=== PATIENT | female | born 1935 | race Caucasian/White ===

== ENCOUNTER 2018-07-26 15:53 | Emergency (ER) | payer OTHER ==
[2018-07-26 17:38] LABS: Absolute Lymphocytes (CBC) 2.1 K/uL (0.7-4.9); Absolute Monocytes 1.3 K/uL (0.1-1.3); Absolute Neutrophil 4.3 K/uL (1.8-8.0); Basophils % 0.7 % (0-1.3); Eosinophils % 2.1 % (0-4.4); Hematocrit 36.1 % (36.0-45.0); MPV 8.2 fL (7.6-11.3); Monocytes % 15.8 % (3.3-12.3); RBC Red Blood Cell Count 3.95 M/uL (3.86-4.86)
[2018-07-26 17:39] LABS: Protime INR 0.98
[2018-07-26 17:56] LABS: ALT/SGPT 35 U/L (12-78); AST/SGOT 28 U/L (15-37); Albumin 3.5 g/dL (3.4-5.0); Alkaline Phosphatase 99 U/L (45-117); BUN Blood Urea Nitrogen 12 mg/dL (7-18); Bicarbonate 31 mmol/L (21-32); Bilirubin Direct 0.1 mg/dL (0-0.2); Bilirubin Total 0.2 mg/dL (0.2-1.0); Glucose Level 106 mg/dL (74-106); Magnesium 2.2 mg/dL (1.8-2.4); NT PRO-BNP 398 pg/mL (<450); Potassium 4.4 mmol/L (3.5-5.1); Protein, Total 7.5 g/dL (6.4-8.2); Sodium Level 131 mmol/L (136-145); Troponin (Emerg Dept Use Only) < 0.02 ng/mL (0.0-0.045)
--- NOTE | 2018-07-26 18:07 | RAD REPORT ---
EXAM DESCRIPTION: CT - Head Brain Wo Cont - 07/26/2018 5:55 pm CLINICAL HISTORY: Alteration of awareness/confusion COMPARISON: December 2016 TECHNIQUE: Computed axial tomography of the head was obtained. IV contrast was not requested. All CT scans are performed using dose optimization technique as appropriate and may include automated exposure control or mA/KV adjustment according to patient size. FINDINGS: Postsurgical changes involve the right cerebrum with gliosis. An acute intracranial bleed is not seen. The ventricles are normal in caliber. No extra-axial fluid collection is noted. Moderate low-density areas within periventricular, deep and subcortical white matter likely represent ischemic changes secondary to small vessel disease. Fluid within the sinuses/ mastoids is not seen. IMPRESSION: No acute intracranial abnormality is seen. If patient's symptoms persist MRI of the bra in would be recommended.
[2018-07-26 18:25] LABS: Urine Blood TRACE (NEG); Urine Glucose NEGATIVE (NEG); Urine Protein NEGATIVE (NEG); Urine Specific Gravity 1.015 (1.005-1.030); Urine pH 7.5 (5.0-7.0)
--- NOTE | 2018-07-26 18:55 | ER ---
Nurse's Notes [facility] Name: Mira Pinto Age: 83 yrs Sex: Female : 1935 Arrival Date: 07/26/2018 Time: 15:57 Bed 27 Private MD: Deniz Lofton Diagnosis: Dementia in other diseases classified elsewhere Presentation: 07/26 15:58 Presenting complaint: Child states: "[facility] nurse called and said that she was aj1 a little more confused than usual, she thought it might be a UTI" Reports that the nurse at [facility] said that her urine had a foul odor to it. Denies dysuria, urinary frequency, fever'. Transition of care: patient was not received from another setting of care. Onset of symptoms was July 26, 2018. Risk Assessment: Do you want to hurt yourself or someone else? Patient reports no desire to harm self or others. Initial Sepsis Screen: Does the patient meet any 2 criteria? No. Patient's initial sepsis screen is negative. Does the patient have a suspected source of infection? Yes: Dysuria/Frequency/Urgency/UTI. Care prior to arrival: None. 15:58 Method Of Arrival: Ambulatory aj1 15:58 Acuity: JOSE 3 aj1 Triage Assessment: 16:03 General: Appears in no apparent distress. comfortable, Behavior is calm, cooperative, aj1 appropriate for age. Pain: Denies pain. Neuro: Level of Consciousness is awake, alert. Cardiovascular: Patient's skin is warm and dry. Respiratory: Airway is patent Respiratory effort is even, Respiratory pattern is regular, symmetrical. 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 - Social history:: Smoking status: Patient/guardian denies using tobacco. - Ebola Screening: : Patient denies travel to an Ebola-affected area in the 21 days before illness onset. Screenin:34 Abuse screen: Denies threats or abuse. Denies injuries from another. Nutritional rv screening: No deficits noted. 18:18 Fall Risk No fall in past 12 months (0 pts). Secondary diagnosis (15 points) impaired rv mobility, No IV (0 pts). Ambulatory Aid- Crutches/Cane/Walker (15 pts). Gait- Weak (10 pts.). Mental Status- Oriented to own ability (0 pts). Total Fields Fall Scale indicates Low Risk Score (25-44 pts). Fall prevention measures have been instituted. Side Rails Up X 2 Placed close to Nursing Station Frequent Obs/Assesments occuring Family Present and informed to notify staff if they need to leave bedside As available Patient and Family Educated on Fall Prevention Program and strategies. 19:21 Tuberculosis screening: No symptoms or risk factors identified. rv Assessment: 17:34 General: Appears in no apparent distress. comfortable, Behavior is calm, cooperative. rv Pain: Denies pain. Neuro: Level of Consciousness is awake, alert, obeys commands, Oriented to person, place, time, situation. Cardiovascular: Capillary refill < 3 seconds. Respiratory: Airway is patent. GI: No signs and/or symptoms were reported involving the gastrointestinal system. : No signs and/or symptoms were reported regarding the genitourinary system. EENT: No signs and/or symptoms were reported regarding the EENT system. Derm: Skin is intact. Musculoskeletal: No signs and/or symptoms reported regarding the musculoskeletal system. Vital Signs: 16:03 BP 142 / 75; Pulse 87; Resp 18; Temp 98.0; Pulse Ox 98% on R/A; Weight 60.78 kg (R); aj1 Height 4 ft. 11 in. (149.86 cm) (R); Pain 0/10; 16:49 BP 137 / 68; Pulse 77; Resp 16 S; Pulse Ox 100% on R/A; rv 17:00 BP 139 / 72; Pulse 77; Resp 16 S; Pulse Ox 99% on R/A; rv 17:20 BP 147 / 72; Pulse 90; Resp 17 S; Pulse Ox 100% on R/A; rv 17:40 BP 158 / 79; Pulse 90; Resp 18 S; Pulse Ox 99% on R/A; rv 16:03 Body Mass Index 27.06 (60.78 kg, 149.86 cm) aj1 ED Course: 15:57 Patient arrived in ED. sb2 15:57 Deniz Lofton DO is Private Physician. sb2 16:02 Triage completed. aj1 16:03 Arm band placed on Patient placed in waiting room, Patient notified of wait time. aj1 16:39 Ran Allen PA is PHCP. [facility] 16:39 Rakan Holt MD is Attending Physician. jmm 17:[address] via stretcher. nj 17:33 Basic Metabolic Panel Sent. rv 17:33 CBC with Diff Sent. rv 17:33 LFT's Sent. rv 17:33 Magnesium Sent. rv 17:33 NT PRO-BNP Sent. rv 17:33 PT-INR Sent. rv 17:33 Troponin (emerg Dept Use Only) Sent. rv 17:56 CT Head Brain wo Cont In Process Unspecified. EDMS 18:05 EKG done, by proc tech. reviewed by Ran GREER. 3 18:17 Goldsmith cath inserted, using sterile technique, 16 Fr., by la, urine specimen collected. rv returned clear yellow urine. Patient tolerated well. Goldsmith cath removed intact. 18:18 Patient has correct armband on for positive identification. Bed in low position. Call rv light in reach. Side rails up X2. Adult w/ patient. monitoring and evaluation advisor on. Pulse ox on. NIBP on. 19:00 XRAY Chest (1 view) In Process Unspecified. EDMS 19:21 No provider procedures requiring assistance completed. IV discontinued, bleeding rv controlled, No redness/swelling at site. Pressure dressing applied. Administered Medications: No medications were administered Outcome: 18:54 Discharge ordered by MD. jm 19:21 Discharged to home via wheelchair. rv 19:21 Condition: good 19:21 Discharge instructions given to patient, family, Instructed on discharge instructions, follow up and referral plans. Demonstrated understanding of instructions, follow-up care. 19:22 Patient left the ED. rv Signatures: Dispatcher [employer] EDMS Latia Parrish, RN RN aj1 Ran lAlen PA PA Chris Pavon Sheri sb2 Montes, Shakira 3 Jc Choi RN RN rv
--- NOTE | 2018-07-26 18:56 | EDPHYS ---
Physician Documentation [facility] Name: Mira Pinto Age: 83 yrs Sex: Female : 1935 Arrival Date: 07/26/2018 Time: 15:57 Bed 27 Private MD: Deniz Lofton ED Physician Rakan Holt HPI: 07/26 17:12 This 83 yrs old Female presents to ER via Ambulatory with complaints of POSS jmm UTI. 17:12 The patient presents with confusion. Onset: The symptoms/episode began/occurred today, jm at 15:00. Possible causes: unknown. Associated signs and symptoms:. This is an 83 year old female with a history of dementia, lupus, cva that presents to the ED nursing him complaints of confusion beginning today around 1500. Daughter states the patient is at her baseline. Daughter stated the halfway was concerned she may have a uti due to foul smelling urine. Patient denies weakness, chest pain, shortness of breath. . 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 - Social history:: Smoking status: Patient/guardian denies using tobacco. - Ebola Screening: : Patient denies travel to an Ebola-affected area in the 21 days before illness onset. ROS: 17:12 Constitutional: Negative for fever, chills, and weight loss, Eyes: Negative for injury, jmm pain, redness, and discharge, Cardiovascular: Negative for chest pain, palpitations, and edema, Respiratory: Negative for shortness of breath, cough, wheezing, and pleuritic chest pain, Neuro: Negative for headache, weakness, numbness, tingling, and seizure. 17:12 All other systems are negative. Exam: 17:12 Constitutional: This is a well developed, well nourished patient who is awake, alert, jmm and in no acute distress. Head/Face: atraumatic. Eyes: EOMI, no conjunctival erythema appreciated ENT: Moist Mucus Membranes Neck: Trachea midline, Supple Chest/axilla: Normal chest wall appearance and motion. Cardiovascular: Regular rate and rhythm. No edema appreciated Respiratory: Normal respirations, no respiratory distress appreciated Abdomen/GI: Non distended, soft Skin: General appearance color normal MS/ Extremity: Moves all extremities, no obvious deformities appreciated, no edema noted to the lower extremities 17:12 Neuro: Orientation: is normal, Mentation: is normal, Memory: is normal, Cerebellar function: normal finger to nose testing, Motor: moves all fours, no drift is appreciated. 17:12 Psych: Behavior/mood is pleasant, cooperative. Vital Signs: 16:03 BP 142 / 75; Pulse 87; Resp 18; Temp 98.0; Pulse Ox 98% on R/A; Weight 60.78 kg (R); aj1 Height 4 ft. 11 in. (149.86 cm) (R); Pain 0/10; 16:49 BP 137 / 68; Pulse 77; Resp 16 S; Pulse Ox 100% on R/A; rv 17:00 BP 139 / 72; Pulse 77; Resp 16 S; Pulse Ox 99% on R/A; rv 17:20 BP 147 / 72; Pulse 90; Resp 17 S; Pulse Ox 100% on R/A; rv 17:40 BP 158 / 79; Pulse 90; Resp 18 S; Pulse Ox 99% on R/A; rv 16:03 Body Mass Index 27.06 (60.78 kg, 149.86 cm) aj1 MDM: 17:12 Patient medically screened. [facility] 18:54 Data reviewed: vital signs, nurses notes. Counseling: I had a detailed discussion with [facility] the patient and/or guardian regarding: the historical points, exam findings, and any diagnostic results supporting the discharge/admit diagnosis, lab results, radiology results, the need for outpatient follow up, to return to the emergency department if symptoms worsen or persist or if there are any questions or concerns that arise at home. 19:14 ED course: Patient is alert and at baseline per family. Symptoms appear most likely [facility] related to dementia. I do not suspect an acute process. Family given return precautions. understood and agrees with the plan of care. . 07/26 17:12 Order name: Basic Metabolic Panel; Complete Time: 17:57 [facility] 07/26 17:12 Order name: CBC with Diff [facility] 07/26 17:12 Order name: LFT's; Complete Time: 17:57 [facility] 07/26 17:12 Order name: Magnesium; Complete Time: 17:57 [facility] 07/26 17:12 Order name: NT PRO-BNP; Complete Time: 17:57 [facility] 07/26 17:12 Order name: PT-INR; Complete Time: 18:15 [facility] 07/26 17:12 Order name: Troponin (emerg Dept Use Only); Complete Time: 17:57 [facility] 07/26 17:12 Order name: XRAY Chest (1 view) [facility] 07/26 17:12 Order name: EKG; Complete Time: 17:14 [facility] 07/26 17:12 Order name: Cardiac monitoring; Complete Time: 18:21 [facility] 07/26 17:12 Order name: EKG - Nurse/Tech; Complete Time: 18:21 [facility] 07/26 17:12 Order name: CT Head Brain wo Cont; Complete Time: 18:14 [facility] 07/26 17:51 Order name: Urine Dipstick--Ancillary (enter results); Complete Time: 18:25 07/26 18:18 Order name: Urine Microscopic Only; Complete Time: 19:14 [facility] 07/26 17:12 Order name: IV Saline Lock; Complete Time: 17:33 [facility] 07/26 17:12 Order name: Labs collected and sent; Complete Time: 17:33 [facility] 07/26 17:12 Order name: O2 Per Protocol; Complete Time: 17:33 [facility] 07/26 17:12 Order name: O2 Sat Monitoring; Complete Time: 17:33 [facility] 07/26 17:12 Order name: Urine Dipstick-Ancillary (obtain specimen); Complete Time: 18:21 [facility] Administered Medications: No medications were administered Disposition: 07/26/18 18:54 Discharged to Home. Impression: Dementia in other diseases classified elsewhere. - Condition is Stable. - Discharge Instructions: Dementia. - Medication Reconciliation Form, Thank You Letter, Antibiotic Education, Prescription Opioid Use form. - Follow up: Private Physician; When: 1 - 2 days; Reason: Recheck today's complaints, Continuance of care, Re-evaluation by your physician. Addendum: 08/06/2018 07:33 Co-signature as Attending Physician, Rakan Holt MD I agree with the assessment and k dr plan of care. Signatures: Dispatcher [employer] EDLatia Koroma RN RN aj1 Rakan Holt MD MD kdr Mickail, Joel, PA PA jmm Vicente, Ronaldo, RN RN rv Corrections: (The following items were deleted from the chart) 07/26 19:22 18:54 07/26/2018 18:54 Discharged to Home. Impression: Dementia in other diseases rv classified elsewhere. Condition is Stable. Forms are Medication Reconciliation Form, Thank You Letter, Antibiotic Education, Prescription Opioid Use. Follow up: Private Physician; When: 1 - 2 days; Reason: Recheck today's complaints, Continuance of care, Re-evaluation by your physician. christina
[2018-07-26 19:00] LABS: Urine Bacteria <20 /HPF (<20); Urine Culture Reflex Order NOT NEEDED
--- NOTE | 2018-07-26 19:34 | RAD REPORT ---
EXAM DESCRIPTION: Kaci Single View07/26/2018 6:59 pm CLINICAL HISTORY: Chest pain COMPARISON: none FINDINGS: The lungs appear clear of acute infiltrate. The heart is borderline enlarged. Small to mo derate hiatal hernia IMPRESSION: No acute abnormalities displayed
[2018-07-26 20:12] LABS: Anisocytosis SLIGHT; Blood Morphology Comment NOTED (NOT SEEN); Platelet Estimate ADEQ
--- NOTE | 2018-07-27 07:01 | EKG ---
Test Date: 2018-07-26 Test Time: 17:43:45 Foreign Car Mechanic: ADY MEASUREMENT RESULTS: Intervals: Rate: 78 OR: 188 QRSD: 70 QT: 396 QTc: 451 [place]: P: 61 OR: 188 QRS: 78 T: 59 INTERPRETIVE STATEMENTS: Sinus rhythm with occasional premature ventricular complexes Otherwise normal ECG Compared to ECG 10/14/1994 09:07:00 Ventricular premature complex(es) now present Electronically Signed On 07-27-18 06:52:12 RESIDENTIAL LEASING MANAGER by Jaison Kent
== END 2018-07-26 19:22 | disposition home or self-care (01) ==
LOC: ER 15:53
DX: F03.90 Unspecified dementia, unspecified severity, without behavioral disturbance, psychotic disturbance, mood disturbance, and anxiety (principal); Z88.5 Allergy status to narcotic agent; Z85.850 Personal history of malignant neoplasm of thyroid; Z86.73 Personal history of transient ischemic attack (TIA), and cerebral infarction without residual deficits; Z90.13 Acquired absence of bilateral breasts and nipples
CPT/HCPCS: 36415; 51702; 70450; 71045; 80048; 80076; 81003; 81015; 83735; 83880; 84484; 85025; 85610; 93005; 99285

== ENCOUNTER 2018-10-13 20:05 | Emergency (ER) | payer OTHER ==
[2018-10-13 22:13] LABS: Urine Blood NEGATIVE (NEG); Urine Glucose NEGATIVE (NEG); Urine Protein NEGATIVE (NEG); Urine pH 6.5 (5.0-7.0)
--- NOTE | 2018-10-13 22:24 | ER ---
Nurse's Notes [facility] Name: Mira Pinto Age: 83 yrs Sex: Female : 1935 Arrival Date: 10/13/2018 Time: 20:12 Bed 28 Private MD: Diagnosis: Concussion;Contusion of unspecified part of head;Contusion of lower back and pelvis;Contusion of left lower leg Presentation: 10/13 20:12 Presenting complaint: EMS states: "PATIENT FELL FROM STANDING. PATIENT HIT HER HEAD, rv BUT NO LOSS OF CONSCIOUSNESS. PATIENT DOES NOT TAKE ANY BLOOD THINNERS.". Transition of care: [facility]IVING. Onset of symptoms was October 13, 2018 at 20:00. Risk Assessment: Do you want to hurt yourself or someone else? Patient reports no desire to harm self or others. Initial Sepsis Screen: Does the patient meet any 2 criteria? No. Patient's initial sepsis screen is negative. Does the patient have a suspected source of infection? No. Patient's initial sepsis screen is negative. Care prior to arrival: None. 20:12 Method Of Arrival: EMS: [facility] rv 20:12 Acuity: JOSE 3 rv Triage Assessment: 20:26 General: Appears in no apparent distress. comfortable, Behavior is calm, cooperative. rv Pain: Complains of pain in HEAD, TAIL BONE. EENT: No signs and/or symptoms were reported regarding the EENT system. Neuro: Level of Consciousness is awake, alert, obeys commands, Oriented to person, place, situation. Cardiovascular: Capillary refill < 3 seconds. Respiratory: Airway is patent. GI: No signs and/or symptoms were reported involving the gastrointestinal system. : No signs and/or symptoms were reported regarding the genitourinary system. Derm: Skin is intact. Musculoskeletal: Reports pain in HEAD, TAIL BONE. 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 - Social history:: Smoking status: Patient/guardian denies using tobacco. - Ebola Screening: : Patient negative for fever greater than or equal to 101.5 degrees Fahrenheit, and additional compatible Ebola Virus Disease symptoms Patient denies exposure to infectious person Patient denies travel to an Ebola-affected area in the 21 days before illness onset. Screenin:45 Abuse screen: Denies threats or abuse. Denies injuries from another. Nutritional rv screening: No deficits noted. Tuberculosis screening: No symptoms or risk factors identified. Fall Risk Fall in past 12 months (25 points). Secondary diagnosis (15 points) impaired mobility, No IV (0 pts). Ambulatory Aid- Crutches/Cane/Walker (15 pts). Gait- Impaired (20 pts.). Mental Status- Oriented to own ability (0 pts). 20:46 Fall Risk Total Fields Fall Scale indicates High Risk Score (45 or more points). Fall rv prevention measures have been instituted. Side Rails Up X 2 Placed Close to Nursing Station Frequent Obs/Assessments Occuring Family Present and informed to notify staff if the need to leave the bedside As available patient and family educated on Fall Prevention Program and Strategies. Assessment: 20:46 Reassessment: SEE TRIAGE ASSESSMENT. rv Vital Signs: 20:15 BP 152 / 81 RA; Pulse 68; Resp 17 S; Temp 97.9(O); Pulse Ox 98% on R/A; rv 20:45 BP 135 / 71 RA; Pulse 62; Resp 16 S; Pulse Ox 96% on R/A; rv 22:37 BP 147 / 81 RA; Pulse 69; Resp 17 S; Pulse Ox 95% on R/A; rv ED Course: 20:12 Patient arrived in ED. rv 20:15 Triage completed. rv 20:20 Bk Yao MD is Attending Physician. tw4 20:47 Patient has correct armband on for positive identification. Placed in gown. Bed in low rv position. Call light in reach. Side rails up X2. Adult w/ patient. cardiac monitor on. Pulse ox on. NIBP on. 20:47 Arm band placed on Patient placed in an exam room, on a stretcher, on environmental monitoring technician, rv on pulse oximetry. EKG completed in triage. Results shown to MD. 21:[address] kw1 21:27 CT completed. Patient moved to radiology. kw1 21:27 CT Head Brain wo Cont In Process Unspecified. EDMS 21:33 CT completed. Patient tolerated procedure well. Patient moved to radiology. kw1 21:47 Tib Fib Left XRAY In Process Unspecified. EDMS 21:47 Hip Left 2 View In Process Unspecified. EDMS 21:47 Knee Left 3 View In Process Unspecified. EDMS 22:38 No provider procedures requiring assistance completed. Patient did not have IV access rv during this emergency room visit. Administered Medications: No medications were administered Outcome: 22:23 Discharge ordered by . tw4 22:38 Discharged to home via wheelchair. rv 22:38 Condition: good 22:38 Discharge instructions given to patient, family, Instructed on discharge instructions, follow up and referral plans. Demonstrated understanding of instructions, follow-up care. 22:38 Patient left the ED. rv Signatures: Dispatcher [employer] EDNY Lonnie Angelica kw1 Bk Yao MD MD tw4 Jc Choi RN RN rv Corrections: (The following items were deleted from the chart) 20:47 20:45 General: Appears in no apparent distress. comfortable, Behavior is calm, rv cooperative, rv :47 20:45 Pain: Denies pain. rv rv 20:47 20:45 Neuro: Level of Consciousness is awake, alert, obeys commands, Oriented to rv person, place, time, situation, rv 20:47 20:45 Cardiovascular: Capillary refill < 3 seconds rv rv 20:47 20:45 Respiratory: Airway is patent rv rv 20:47 20:45 GI: No signs and/or symptoms were reported involving the gastrointestinal system. rv rv 20: 20:45 : No signs and/or symptoms were reported regarding the genitourinary system. rv rv 20:47 20:45 Derm: Skin is intact, rv rv 20:47 20:45 EENT: No signs and/or symptoms were reported regarding the EENT system. rv rv 20:47 20:45 Musculoskeletal: No signs and/or symptoms reported regarding the musculoskeletal rv system. rv
--- NOTE | 2018-10-13 22:24 | EDPHYS ---
Physician Documentation [facility] Name: Mira Pinto Age: 83 yrs Sex: Female : 1935 Arrival Date: 10/13/2018 Time: 20:12 Bed 28 Private MD: ED Physician Bk Yao HPI: 10/14 06:59 This 83 yrs old Female presents to ER via EMS with complaints of fall. tw4 06:59 Details of fall: The patient fell from an upright position. Onset: The symptoms/episode tw4 began/occurred today. Associated injuries: The patient sustained injury to the head. Severity of symptoms: At their worst the symptoms were moderate, in the emergency department the symptoms. The patient has not experienced similar symptoms in the past. Historical: - Allergies: 10/13 20:25 Codeine; rv - Home Meds: 20:25 citalopram 20 mg tab 1 tab once daily [Active]; levetiracetam 1,000 mg oral tab 1 tab rv every 12 hours [Active]; Lyrica Oral 1 cap 2 times per day [Active]; melatonin 3 mg Oral tab [Active]; FACILITY ATTENDANT Thyroid oral 120 MG TAB oral 1 cap daily [Active]; omeprazole 20 mg Oral cpDR 1 cap once daily [Active]; Senexon-S 8.6-50 mg oral tab 1 tabs as needed [Active]; simvastatin 40 mg Oral tab 1 tab once daily [Active]; Vitamin B-12 1,000 mcg Oral TbER [Active]; Vitamin D3 5,000 unit oral tab daily [Active]; - PMHx: 20:25 "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 - Social history:: Smoking status: Patient/guardian denies using tobacco. - Ebola Screening: : Patient negative for fever greater than or equal to 101.5 degrees Fahrenheit, and additional compatible Ebola Virus Disease symptoms Patient denies exposure to infectious person Patient denies travel to an Ebola-affected area in the 21 days before illness onset. ROS: 10/14 06:59 Constitutional: Negative for fever, chills, and weight loss, Eyes: Negative for injury, tw4 pain, redness, and discharge, Cardiovascular: Negative for chest pain, palpitations, and edema, Respiratory: Negative for shortness of breath, cough, wheezing, and pleuritic chest pain, Abdomen/GI: Negative for abdominal pain, nausea, vomiting, diarrhea, and constipation, Back: Negative for injury and pain. MS/extremity: Positive for injury or acute deformity, Negative for abrasion, decreased range of motion, deformity, ecchymosis, erythema. Exam: 10/13 21:15 ECG was reviewed by the Attending Physician. tw4 10/14 06:59 Constitutional: This is a well developed, well nourished patient who is awake, alert, tw4 and in no acute distress. Head/Face: Normocephalic, atraumatic. Chest/axilla: Normal chest wall appearance and motion. Nontender with no deformity. No lesions are appreciated. Cardiovascular: Regular rate and rhythm with a normal S1 and S2. No gallops, murmurs, or rubs. Normal PMI, no JVD. No pulse deficits. Respiratory: Lungs have equal breath sounds bilaterally, clear to auscultation and percussion. No rales, rhonchi or wheezes noted. No increased work of breathing, no retractions or nasal flaring. Abdomen/GI: Soft, non-tender, with normal bowel sounds. No distension or tympany. No guarding or rebound. No evidence of tenderness throughout. Neuro: Awake and alert, GCS 15, oriented to person, place, time, and situation. Cranial nerves II-XII grossly intact. Motor strength 5/5 in all extremities. Sensory grossly intact. Cerebellar exam normal. Normal gait. Skin: Warm, dry with normal turgor. Normal color with no rashes, no lesions, and no evidence of cellulitis. Musculoskeletal/extremity: Extremities: noted in the left upper thigh, left quadriceps, left knee and left schuster: Vital Signs: 10/13 20:15 BP 152 / 81 RA; Pulse 68; Resp 17 S; Temp 97.9(O); Pulse Ox 98% on R/A; rv 20:45 BP 135 / 71 RA; Pulse 62; Resp 16 S; Pulse Ox 96% on R/A; rv 22:37 BP 147 / 81 RA; Pulse 69; Resp 17 S; Pulse Ox 95% on R/A; rv MDM: 20:20 Patient medically screened. tw4 10/14 06:59 Differential diagnosis: contusion, fracture. Data reviewed: vital signs, nurses notes. tw4 Data interpreted: Pulse oximetry: Interpretation: normal. Counseling: I had a detailed discussion with the patient and/or guardian regarding: the historical points, exam findings, and any diagnostic results supporting the discharge/admit diagnosis, radiology results. Special discussion: I discussed with the patient/guardian in detail that at this point there is no indication for admission to the hospital. It is understood, however, that if the symptoms persist or worsen the patient needs to return immediately for re-evaluation. 07:01 ED course: All imaging studies negative pt awake alert oriented times three. tw4 10/13 20:49 Order name: Urine Dipstick--Ancillary (enter results) ar5 10/13 22:13 Order name: Urine Dipstick-Ancillary EDMS 10/13 21:07 Order name: CT Head Brain wo Cont rv 10/13 21:07 Order name: Tib Fib Left XRAY rv 10/13 21:38 Order name: Hip Left 2 View EDMS 10/13 21:38 Order name: Knee Left 3 View EDMS EC/09 21:15 Rate is 64 beats/min. Rhythm is regular. QRS [place] is Normal. TN interval is normal. QRS tw4 interval is normal. No Q waves. T waves are Normal. No ST changes noted. Clinical impression: Normal ECG. Interpreted by me. Reviewed by me. Administered Medications: No medications were administered Disposition: 10/13/18 22:23 Discharged to Home. Impression: Concussion, Contusion of unspecified part of head, Contusion of lower back and pelvis, Contusion of left lower leg. - Condition is Stable. - Discharge Instructions: Contusion, Contusion, [id number], Head Injury, Adult, [id number]. - Medication Reconciliation Form, Thank You Letter, Antibiotic Education, Prescription Opioid Use form. - Follow up: Private Physician; When: Upon discharge from the Emergency Department; Reason: If symptoms return, Recheck today's complaints, Continuance of care. - Problem is new. - Symptoms have improved. Signatures: Dispatcher [facility] MD MD tw4 Jc Choi RN RN rv Corrections: (The following items were deleted from the chart) 21:38 21:08 Knee Left 2 View+RAD.RAD.BRZ ordered. EDMS EDMS 21:38 21:08 Hip Left 1 View+RAD.RAD.BRZ ordered. EDDE EDMS 22:38 22:23 10/13/2018 22:23 Discharged to Home. Impression: Concussion; Contusion of rv unspecified part of head; Contusion of lower back and pelvis; Contusion of left lower leg. Condition is Stable. Forms are Medication Reconciliation Form, Thank You Letter, Antibiotic Education, Prescription Opioid Use. Follow up: Private Physician; When: Upon discharge from the Emergency Department; Reason: If symptoms return, Recheck today's complaints, Continuance of care. Problem is new. Symptoms have improved. tw4
--- NOTE | 2018-10-14 11:42 | RAD REPORT ---
EXAM DESCRIPTION: RAD - Hip Left 2 View - 10/13/2018 9:47 pm CLINICAL HISTORY: PAIN Trauma, pain, history of fall COMPARISON: None FINDINGS: Left hip, left knee and left tibia/ fibula- multiple projections are submitted Osteoarthritic changes affect the left hip. No acute fracture or dislocation evident. 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 No acute fracture, dislocation or knee joint effu flavia seen. No fracture of the tibia/fibula identified. Small posterior calcaneal spur evident.
--- NOTE | 2018-10-14 21:46 | EKG ---
Test Date: 2018-10-13 Test Time: 20:35:11 Visual Effects Artist: MEASUREMENT RESULTS: Intervals: Rate: 64 CT: 206 QRSD: 74 QT: 416 QTc: 429 [place]: P: 49 CT: 206 QRS: 54 T: 54 INTERPRETIVE STATEMENTS: Normal sinus rhythm Normal ECG Compared to ECG 07/26/2018 17:43:45 Ventricular premature complex(es) no longer present Electronically Signed On 10-14-18 21:45:28 CDT by Bruno Bullock
--- NOTE | 2018-10-15 10:22 | RAD REPORT ---
EXAM DESCRIPTION: RAD - Tib Fib Left - 10/13/2018 9:49 pm CLINICAL HISTORY: PAIN Trauma, pain, history of fall COMPARISON: None FINDINGS: Left hip, left knee and left tibia/ fibula- multiple projections are submitted Osteoarthritic changes affect the left hip. No acute fracture or dislocation evident. 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 No acute fracture, dislocation or knee joint effu flavia seen. No fracture of the tibia/fibula identified. Small posterior calcaneal spur evident.
--- NOTE | 2018-10-15 10:22 | RAD REPORT ---
EXAM DESCRIPTION: RAD - Knee Left 3 View - 10/13/2018 9:49 pm CLINICAL HISTORY: PAIN Trauma, pain, history of fall COMPARISON: None FINDINGS: Left hip, left knee and left tibia/ fibula- multiple projections are submitted Osteoarthritic changes affect the left hip. No acute fracture or dislocation evident. 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 No acute fracture, dislocation or knee joint effu flavia seen. No fracture of the tibia/fibula identified. Small posterior calcaneal spur evident.
--- NOTE | 2018-10-15 11:52 | RAD REPORT ---
EXAM DESCRIPTION: Head Brain Wo Cont CLINICAL HISTORY: 83 years Female, TRAUMA TECHNIQUE: 5 mm axial images were obtained along with 3 mm reformatted coronal and sagittal images. This exam was performed according to our departmental dose-optimization program, which includes autom ated exposure control, adjustment of the mA and/or kV according to patient size and/or use of iterati ve reconstruction technique. COMPARISON: 07/26/2018. FINDINGS: No acute abnormal extracerebral fluid collections are demonstrated. The cortical sulci, ventricles, and cisterns are within normal limits. There are chronic encephalomalacic changes identified in the right frontal lobe and in the left parie steve lobe posteriorly from previous infarcts, stable. There are mild chronic bilateral periventricular microangiopathic white matter changes. There are no areas of altered attenuation identified to suggest acute hemorrhage, infarction, or mass lesion. The visualized portions of the paranasal sinuses and mastoid air cells are clear. IMPRESSION: 1. No acute intracranial abnormality. Electronically signed by: Vipul Lazcano MD 10/13/2018 9:48 PM BLASTING ENTRYMAN Due to temporary technical issues with the PACS/Fluency reporting system, reports are being signed by the in house radiologist as a courtesy to ensure prompt reporting. The interpreting radiologist is f ully responsible for the content of the report.
== END 2018-10-13 22:38 | disposition home or self-care (01) ==
LOC: ER 20:05
DX: S06.0X9A Concussion with loss of consciousness of unspecified duration, initial encounter (principal); S00.93XA Contusion of unspecified part of head, initial encounter; S30.0XXA Contusion of lower back and pelvis, initial encounter; S80.12XA Contusion of left lower leg, initial encounter; W19.XXXA Unspecified fall, initial encounter; Y93.9 Activity, unspecified; Y92.9 Unspecified place or not applicable; Z88.5 Allergy status to narcotic agent; Z85.850 Personal history of malignant neoplasm of thyroid; Z86.73 Personal history of transient ischemic attack (TIA), and cerebral infarction without residual deficits
CPT/HCPCS: 70450; 81003; 93005; 99284

== ENCOUNTER 2018-12-12 10:35 | Emergency (ER) | payer OTHER ==
--- NOTE | 2018-12-12 11:52 | RAD REPORT ---
EXAM DESCRIPTION: RAD - Lumbar Spine 3 Views - 12/12/2018 11:40 am CLINICAL HISTORY: Fall, back pain COMPARISON: Lumbar spine April 2007 FINDINGS: A three-view lumbar spine examination was performed. Bones are osteopenic. L3-L5 bodies are normal in height. T9-T11 also normal in height. Patient has a left convex mild rotoscoliosis that is minimally progressive from 2006. Approximately 20% compression superior endplate L2 is present stable from 2006. Patient has 10-20% co mpression of the superior endplate of T12. L1 shows 5-10% compression along the superior endplate. No lytic, sclerotic or expansile destructive process. Lower lumbar facet joint degenerative changes a re present. No disc space narrowing. No pars defects identified. IMPRESSION: T12 10-20% compression fracture along the superior endplate. L1 shows 5-10% compression along the superior endplate. Both of these fracture changes are new from 2006 but are not otherwise d ated. Given the fall history, acute fracture is certainly possible. Partial compression fracture of L2 is stable from 2006. No pathologic bone process seen. No encroachment into the central canal identified. Follow-up MR imaging could be performed to evaluat e for any active marrow signal in T12-L1 to evaluate acute or chronic nature.
--- NOTE | 2018-12-12 12:54 | ER ---
Nurse's Notes [facility] Name: Mira Pinto Age: 83 yrs Sex: Female : 1935 Arrival Date: 12/12/2018 Time: 10:36 Bed 6 Private MD: Deniz Lofton Diagnosis: Anterior stable compression fractures of T12 - L1, old anterior compression fracture of L2 Presentation: 12/12 10:50 Presenting complaint: Child states: From [place], fell Monday night, found on ph ground by staff, unknown LOC, c/o low back pain, pt does not remember falling, hx of dementia. Transition of care: patient was not received from another setting of care. Onset of symptoms was December 12, 2018. Risk Assessment: Do you want to hurt yourself or someone else? Patient reports no desire to harm self or others. Initial Sepsis Screen: Does the patient meet any 2 criteria? No. Patient's initial sepsis screen is negative. Does the patient have a suspected source of infection? No. Patient's initial sepsis screen is negative. Care prior to arrival: None. 10:50 Method Of Arrival: Wheelchair ph 10:50 Acuity: JOSE 3 ph 11:03 Mechanism of Injury: Fall from standing position. Trauma event details: Injury occurred sv in the [facility], Injury occurred: at home. Injury occurred: December 10, 2018. Trauma Activation: Not Applicable Physician: ED Physician; Name: ; Notified At: ; Arrived At: Physician: General Surgeon; Name: ; Notified At: ; Arrived At: Physician: Radiology; Name: ; Notified At: ; Arrived At: Physician: Respiratory; Name: ; Notified At: ; Arrived At: Physician: Lab; Name: ; Notified At: ; Arrived At: Historical: - Allergies: 10:53 Codeine; ph - Home Meds: 10:53 citalopram 20 mg tab 1 tab once daily [Active]; levetiracetam 1,000 mg Oral tab 1 tab ph every 12 hours [Active]; Lyrica Oral 1 cap 2 times per day [Active]; melatonin 3 mg Oral tab [Active]; DUCT LAYER Thyroid 120 MG TAB Oral 1 cap daily [Active]; omeprazole 20 mg Oral cpDR 1 cap once daily [Active]; Senexon-S 8.6-50 mg Oral tab 1 tabs as needed [Active]; simvastatin 40 mg Oral tab 1 tab once daily [Active]; Vitamin B-12 1,000 mcg Oral TbER [Active]; Vitamin D3 5,000 unit Oral tab daily [Active]; - PMHx: 10:53 "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 - Social history:: Smoking status: Patient/guardian denies using tobacco. - Immunization history: Last tetanus immunization: - up to date. - Ebola Screening: : No symptoms or risks identified at this time. Screenin:00 Abuse screen: Denies threats or abuse. Denies injuries from another. Tuberculosis sv screening: No symptoms or risk factors identified. 11:02 Nutritional screening: No deficits noted. Fall Risk Fall in past 12 months (25 points). sv Secondary diagnosis (15 points) dementia, No IV (0 pts). Ambulatory Aid- None/Bed Rest/Nurse Assist (0 pts). Gait- Weak (10 pts.). Mental Status- Oriented to own ability (0 pts). [place] Fall Scale indicates High Risk Score (45 or more points). Fall prevention measures have been instituted. Side Rails Up X 2 Placed Close to Nursing Station Frequent Obs/Assessments Occuring Family Present and informed to notify staff if the need to leave the bedside As available patient and family educated on Fall Prevention Program and Strategies. Primary Survey: 10:59 NO uncontrolled hemorrhage observed. A: The patient is alert. Airway: patent, No sv supplemental oxygen in use on arrival. Oral cavity: clear, Trachea midline. Breathing/Chest: Respiratory pattern: regular, Respiratory effort: spontaneous, unlabored, Chest inspection: symmetrical rise and fall of the chest. Circulation: Heart tones present. Skin color: pink, Skin temperature: warm, dry. Disability Alert. Exposure/Environment: All clothing and personal items were removed. Forensic evidence collection is not deemed to be indicated at this time. Items placed in patient belonging bag. There is no evidence of uncontrolled external bleeding. No obvious injuries are noted at this time. A warming method has been applied: A warm blanket has been provided to the patient. 11:45 Reassessment Airway Airway Patent Oxygen No O2 Oral cavity Clear Trachea Midline sv Breathing/Chest Respiratory pattern Regular Respiratory effort Spontaneous Unlabored Chest inspection Symmetrical Circulation Heart tones Present Pulses Palpable Color [place] Temperature Warm Dry Disability Alert. Secondary Survey: 10:59 HEENT: No deficits noted. Gastrointestinal: Palpation Patient reports sensitive in the sv lower abdomen. : No signs and/or symptoms were reported regarding the genitourinary system. Musculoskeletal: No signs and/or symptoms reported regarding the musculoskeletal system. Assessment: 12:30 Reassessment: Patient appears in no apparent distress at this time. No changes from sv previously documented assessment. Patient and/or family updated on plan of care and expected duration. Pain level reassessed. Patient is alert, oriented x 3, equal unlabored respirations, skin warm/dry/pink. 13:20 Reassessment: Patient appears in no apparent distress at this time. No changes from sv previously documented assessment. Patient and/or family updated on plan of care and expected duration. Pain level reassessed. Patient is alert, oriented x 3, equal unlabored respirations, skin warm/dry/pink. Vital Signs: 10:52 BP 149 / 86; Pulse 79; Resp 20; Temp 98.5; Pulse Ox 96% on R/A; Weight 63.5 kg; Pain ph 5/10; 11:45 BP 130 / 80; Pulse 77; Resp 16; Temp 98.4; Pulse Ox 95% ; sv 12:41 BP 126 / 66; Pulse 72; Resp 16; Temp 98.5; Pulse Ox 95% ; sv [place] Coma Score: 11:01 Eye Response: spontaneous(4). Verbal Response: oriented(5). Motor Response: obeys sv commands(6). Total: 15. 11:45 Eye Response: spontaneous(4). Verbal Response: oriented(5). Motor Response: obeys sv commands(6). Total: 15. 13:20 Eye Response: spontaneous(4). Verbal Response: oriented(5). Motor Response: obeys sv commands(6). Total: 15. Trauma Score (Adult): 11:01 Eye Response: spontaneous(1); Verbal Response: oriented(1); Motor Response: obeys sv commands(2); Systolic BP: > 89 mm Hg(4); Respiratory Rate: 10 to 29 per min(4); Ker[place] Score: 15; Trauma Score: 12 11:45 Eye Response: spontaneous(1); Verbal Response: oriented(1); Motor Response: obeys sv commands(2); Systolic BP: > 89 mm Hg(4); Respiratory Rate: 10 to 29 per min(4); Ker[place] Score: 15; Trauma Score: 12 13:20 Eye Response: spontaneous(1); Verbal Response: oriented(1); Motor Response: obeys sv commands(2); Systolic BP: > 89 mm Hg(4); Respiratory Rate: 10 to 29 per min(4); Kerline Score: 15; Trauma Score: 12 ED Course: 10:36 Patient arrived in ED. as 10:38 Deniz Lofton DO is Private Physician. as 10:38 Rakan Holt MD is Attending Physician. kdr 10:52 Triage completed. ph 10:52 Arm band placed on Patient placed in an exam room, on a stretcher, on pulse oximetry. ph 10:58 Joselin Small RN is Primary Nurse. sv 11:00 Patient has correct armband on for positive identification. Bed in low position. Call sv light in reach. Side rails up X2. Adult w/ patient. Pulse ox on. NIBP on. Door closed. Head of bed elevated. 11:02 Patient maintains SpO2 saturation greater than 95% on room air. sv 11:03 Thermoregulation: warm blanket given to patient. sv 11:38 X-ray completed. Patient tolerated procedure well. sw 11:40 Lumbar Spine (3 Views) XRAY In Process Unspecified. EDMS 13:20 No provider procedures requiring assistance completed. Patient did not have IV access sv during this emergency room visit. Administered Medications: 13:14 CANCELLED (order changed): traMADol 25 mg PO once sv 13:20 Drug: traMADol 50 mg Route: PO; ch 13:20 Follow up: Response: Medication administered at discharge. sv Intake: 11:01 PO: 0ml; Total: 0ml. sv 11:45 PO: 0ml; Total: 0ml. sv Output: 11:01 Urine: 0ml; Total: 0ml. sv 11:45 Urine: 0ml; Total: 0ml. sv Outcome: 12:53 Discharge ordered by . kdr 13:23 Discharged to home via wheelchair, with family. ch 13:23 Condition: unchanged 13:23 Discharge instructions given to patient, family, Instructed on discharge instructions, follow up and referral plans. no drinking with medication, no driving heavy equipment, medication usage, Demonstrated understanding of instructions, follow-up care, medications, Prescriptions given X 1. 13:24 Patient left the ED. 13:28 Patient's length of stay in the Emergency Department was greater than 2 hours. due to sv needing dischargePatient's length of stay extended due to Signatures: Dispatcher [employer] EDMS Justina Taylor RN RN Joselin Small RN RN Rakan Holt MD MD kdr Martinez, Amelia as Hall, Patricia, RN RN Colton, Edel
--- NOTE | 2018-12-12 12:54 | EDPHYS ---
Physician Documentation [facility] Name: Mira Pinto Age: 83 yrs Sex: Female : 1935 Arrival Date: 12/12/2018 Time: 10:36 Bed 6 Private MD: Deniz Lofton ED Physician Rakan Holt HPI: 12/12 10:59 This 83 yrs old Female presents to ER via Wheelchair with complaints of Fall kdr Injury, Back Pain. 10:59 Details of fall: The patient fell from an upright position, while standing. Onset: The kdr symptoms/episode began/occurred suddenly, Monday. Associated injuries: The patient sustained injury to the low back, decreased range of motion, pain, pain with movement. Severity of symptoms: At their worst the symptoms were moderate, in the emergency department the symptoms are unchanged. The patient has not experienced similar symptoms in the past. The patient has not recently seen a physician. Daughter indicates that she falls often and that since Monday, she has been c/o pain to her low back whenever she is moved. 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 - Social history:: Smoking status: Patient/guardian denies using tobacco. - Immunization history: Last tetanus immunization: - up to date. - Ebola Screening: : No symptoms or risks identified at this time. ROS: 10:59 Constitutional: Negative for fever, chills, and weight loss, Eyes: Negative for injury, kdr pain, redness, and discharge, ENT: Negative for injury, pain, and discharge, Neck: Negative for injury, pain, and swelling, Cardiovascular: Negative for chest pain, palpitations, and edema, Respiratory: Negative for shortness of breath, cough, wheezing, and pleuritic chest pain, Abdomen/GI: Negative for abdominal pain, nausea, vomiting, diarrhea, and constipation, : Negative for injury, bleeding, discharge, and swelling, MS/Extremity: Negative for injury and deformity, Skin: Negative for injury, rash, and discoloration, Neuro: Negative for headache, weakness, numbness, tingling, and seizure activity. Psych: Negative for depression, anxiety, suicide ideation, homicidal ideation, and hallucinations, Allergy/Immunology: Negative for hives, rash, and allergies, Endocrine: Negative for neck swelling, polydipsia, polyuria, polyphagia, and marked weight changes, Hematologic/Lymphatic: Negative for swollen nodes, abnormal bleeding, and unusual bruising. 10:59 Back: Positive for decreased range of motion, pain at rest, pain with movement, of the lumbar area. Exam: 10:59 Constitutional: This is a well developed, well nourished patient who is awake, alert, kdr and in no acute distress. Head/Face: Normocephalic, atraumatic. Eyes: Pupils equal round and reactive to light, extra-ocular motions intact. Lids and lashes normal. Conjunctiva and sclera are non-icteric and not injected. Cornea within normal limits. Periorbital areas with no swelling, redness, or edema. Neck: Trachea midline, no thyromegaly or masses palpated, and no cervical lymphadenopathy. Supple, full range of motion without nuchal rigidity, or vertebral point tenderness. No Meningismus. Chest/axilla: Normal chest wall appearance and motion. Nontender with no deformity. No lesions are appreciated. Cardiovascular: Regular rate and rhythm with a normal S1 and S2. No gallops, murmurs, or rubs. Normal PMI, no JVD. No pulse deficits. Respiratory: Lungs have equal breath sounds bilaterally, clear to auscultation and percussion. No rales, rhonchi or wheezes noted. No increased work of breathing, no retractions or nasal flaring. Abdomen/GI: Soft, non-tender, with normal bowel sounds. No distension or tympany. No guarding or rebound. No evidence of tenderness throughout. Skin: Warm, dry with normal turgor. Normal color with no rashes, no lesions, and no evidence of cellulitis. MS/ Extremity: Pulses equal, no cyanosis. Neurovascular intact. Full, normal range of motion. Neuro: Awake and alert, GCS 15, oriented to person, place, time, and situation. Cranial nerves II-XII grossly intact. Motor strength 5/5 in all extremities. Sensory grossly intact. Cerebellar exam normal. Normal gait. Psych: Awake, alert, with orientation to person, place and time. Behavior, mood, and affect are within normal limits. 10:59 Back: pain, that is mild, of the lumbar area, ROM is painful, normal spinal alignment noted, CVA tenderness, is absent, vertebral tenderness, is appreciated at L1, L2 and L3. Vital Signs: 10:52 BP 149 / 86; Pulse 79; Resp 20; Temp 98.5; Pulse Ox 96% on R/A; Weight 63.5 kg; Pain ph 5/10; 11:45 BP 130 / 80; Pulse 77; Resp 16; Temp 98.4; Pulse Ox 95% ; sv 12:41 BP 126 / 66; Pulse 72; Resp 16; Temp 98.5; Pulse Ox 95% ; sv Kerline Coma Score: 11:01 Eye Response: spontaneous(4). Verbal Response: oriented(5). Motor Response: obeys sv commands(6). Total: 15. 11:45 Eye Response: spontaneous(4). Verbal Response: oriented(5). Motor Response: obeys sv commands(6). Total: 15. 13:20 Eye Response: spontaneous(4). Verbal Response: oriented(5). Motor Response: obeys sv commands(6). Total: 15. Trauma Score (Adult): 11:01 Eye Response: spontaneous(1); Verbal Response: oriented(1); Motor Response: obeys sv commands(2); Systolic BP: > 89 mm Hg(4); Respiratory Rate: 10 to 29 per min(4); Kerline Score: 15; Trauma Score: 12 11:45 Eye Response: spontaneous(1); Verbal Response: oriented(1); Motor Response: obeys sv commands(2); Systolic BP: > 89 mm Hg(4); Respiratory Rate: 10 to 29 per min(4); Kerline Score: 15; Trauma Score: 12 13:20 Eye Response: spontaneous(1); Verbal Response: oriented(1); Motor Response: obeys sv commands(2); Systolic BP: > 89 mm Hg(4); Respiratory Rate: 10 to 29 per min(4); Kerline Score: 15; Trauma Score: 12 MDM: 10:59 Data reviewed: vital signs, nurses notes, radiologic studies. Counseling: I had a kdr detailed discussion with the patient and/or guardian regarding: the historical points, exam findings, and any diagnostic results supporting the discharge/admit diagnosis, radiology results. 12:53 Patient medically screened. kdr 12/12 10:59 Order name: Lumbar Spine (3 Views) XRAY; Complete Time: 12:13 kdr Administered Medications: 13:14 CANCELLED (order changed): traMADol 25 mg PO once sv 13:20 Drug: traMADol 50 mg Route: PO; 13:20 Follow up: Response: Medication administered at discharge. sv Disposition: 12/12/18 12:53 Discharged to Home. Impression: Anterior stable compression fractures of T12 - L1, old anterior compression fracture of L2. - Condition is Stable. - Prescriptions for Tramadol 50 mg Oral Tablet - take 1 tablet by ORAL route every 8 hours as needed; 12 tablet. - Medication Reconciliation Form, Thank You Letter, Prescription Opioid Use form. - Follow up: Private Physician; When: 2 - 3 days; Reason: If symptoms return, Further diagnostic work-up, Recheck today's complaints, Continuance of care, Re-evaluation by your physician. - Problem is new. - Symptoms have improved. Signatures: Dispatcher [employer] EDMS Justina Taylor RN RN Joselin Small RN RN Rakan Holt MD MD [email or web address] Merary Newby RN RN ph Corrections: (The following items were deleted from the chart) 13:05 12:53 12/12/2018 12:53 Discharged to Home. Impression: Anterior Stable Compression kdr Fracture of T11, T12. Condition is Stable. Forms are Medication Reconciliation Form, Thank You Letter, Antibiotic Education, Prescription Opioid Use. Follow up: Private Physician; When: 2 - 3 days; Reason: If symptoms return, Further diagnostic work-up, Recheck today's complaints, Continuance of care, Re-evaluation by your physician. Problem is new. Symptoms have improved. kdr 13:14 12:44 traMADol 25 mg PO once ordered. kdr sv 13:24 13:05 12/12/2018 12:53 Discharged to Home. Impression: Anterior stable compression ch fractures of T12 - L1, old anterior compression fracture of L2. Condition is Stable. Forms are Medication Reconciliation Form, Thank You Letter, Antibiotic Education, Prescription Opioid Use. Follow up: Private Physician; When: 2 - 3 days; Reason: If symptoms return, Further diagnostic work-up, Recheck today's complaints, Continuance of care, Re-evaluation by your physician. Problem is new. Symptoms have improved. kdr
[2018-12-12] MEDS ORDERED: TRAMADOL HCL 50 MG TAB ONE (13:23)
== END 2018-12-12 13:24 | disposition home or self-care (01) ==
LOC: ER 10:35
DX: S32.019A Unspecified fracture of first lumbar vertebra, initial encounter for closed fracture (principal); S32.029A Unspecified fracture of second lumbar vertebra, initial encounter for closed fracture; S22.089A Unspecified fracture of T11-T12 vertebra, initial encounter for closed fracture; W19.XXXA Unspecified fall, initial encounter; Y93.9 Activity, unspecified; Y92.9 Unspecified place or not applicable; Z88.5 Allergy status to narcotic agent; Z86.73 Personal history of transient ischemic attack (TIA), and cerebral infarction without residual deficits; Z85.850 Personal history of malignant neoplasm of thyroid
CPT/HCPCS: 72100; 99284

== ENCOUNTER 2018-12-13 14:50 | Inpatient (IN) | payer OTHER ==
[2018-12-13 16:16] LABS: Absolute Lymphocytes (CBC) 1.2 K/uL (0.7-4.9); Absolute Monocytes 1.5 K/uL (0.1-1.3); Basophils % 0.3 % (0-1.3); Eosinophils % 0.1 % (0-4.4); Hematocrit 40.2 % (36.0-45.0); Lymphocytes % 8.2 % (15.3-44.8); MPV 8.4 fL (7.6-11.3); RBC Red Blood Cell Count 4.42 M/uL (3.86-4.86)
[2018-12-13 16:46] LABS: Albumin 3.6 g/dL (3.4-5.0); Bilirubin Direct 0.2 mg/dL (0-0.2); Bilirubin Total 0.6 mg/dL (0.2-1.0); Potassium 3.8 mmol/L (3.5-5.1); Protein, Total 8.2 g/dL (6.4-8.2)
--- NOTE | 2018-12-13 17:27 | RAD REPORT ---
EXAM DESCRIPTION: CTAbdomen Pelvis W Contrast - 12/13/2018 5:13 pm CLINICAL HISTORY: Abdominal pain. iv contrast only;Abd pain;Abdominal distention COMPARISON: Lumbar Spine 3 Views dated 12/12/2018 TECHNIQUE: Biphasic CT imaging of the abdomen and pelvis was performed with 100 ml non-ionic IV cont rast. All CT scans are performed using dose optimization technique as appropriate and may include automated exposure control or mA/KV adjustment according to patient size. FINDINGS: A large hiatal hernia is present. Bibasilar lung opacities are present most compatible wit h atelectasis. The lung bases are emphysematous. The liver, spleen, pancreas, adrenal glands and kidneys are within normal limits. Small cyst is prese nt medial cortex left kidney measuring 17 mm. Generalize colonic distention is seen. There is significant diverticulosis present with areas of clau nal narrowing seen in the sigmoid colon. No definitive mass identified however followup colonoscopy w ould be advised not recently performed. No free fluid, free air or SBO. The appendix is not identifi ed as a discrete structure, however, no secondary findings of appendicitis are identified. No evide nce of significant lymphadenopathy. No suspicious bony findings. Compression deformities are noted involving T12 and L2, age undetermined . IMPRESSION: Diffuse distention of the colon without clear obstructing mass visualized. There is area s of luminal narrowing seen involving the sigmoid colon where multiple diverticula are also present. Advise follow-up colonoscopy if not recently performed. Large hiatal hernia with compressive atelectasis in both posterior lung bases.
--- NOTE | 2018-12-13 18:09 | EDPHYS ---
Physician Documentation [facility] Name: Mira Pinto Age: 83 yrs Sex: Female : 1935 Arrival Date: 12/13/2018 Time: 14:54 Bed 18 Private MD: ED Physician Rakan Holt HPI: 12/13 15:41 This 83 yrs old Female presents to ER via EMS with complaints of Abdominal jr8 Distention. 15:41 The patient presents with abdominal pain that is diffuse. Onset: The symptoms/episode jr8 began/occurred acutely, last night. The symptoms do not radiate. Associated signs and symptoms: Pertinent positives: nausea. The symptoms are described as constant, dull. Modifying factors: The symptoms are alleviated by nothing, the symptoms are aggravated by food. Severity of pain: At its worst the pain was mild in the emergency department the pain is unchanged. The patient has not experienced similar symptoms in the past. The patient has been recently seen at the [facility] Emergency Department, yesterday, for unrelated complaints, Patient seen yesterday for fall injury that happened about 1 week ago. Had mild compression fractures and was discharged at that time. Family stated that last night she started to not want to eat and then had abdominal distension this AM with nausea. Mild pebble like stool. 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 - Social history:: Smoking status: Patient/guardian denies using tobacco. - Ebola Screening: : No symptoms or risks identified at this time. ROS: 15:41 Eyes: Negative for injury, pain, redness, and discharge, ENT: Negative for injury, jr8 pain, and discharge, Neck: Negative for injury, pain, and swelling, Cardiovascular: Negative for chest pain, palpitations, and edema, Respiratory: Negative for shortness of breath, cough, wheezing, and pleuritic chest pain, Back: Negative for injury and pain, MS/Extremity: Negative for injury and deformity, Skin: Negative for injury, rash, and discoloration, Neuro: Negative for headache, weakness, numbness, tingling, and seizure. 15:41 Abdomen/GI: Positive for abdominal pain, nausea, constipation, abdominal distension, Negative for vomiting, diarrhea, anorexia, dysphagia, hematemesis, black/tarry stool, rectal pain, rectal bleeding, bowel incontinence, flatulence. Exam: 15:41 Eyes: Pupils equal round and reactive to light, extra-ocular motions intact. Lids and jr8 lashes normal. Conjunctiva and sclera are non-icteric and not injected. Cornea within normal limits. Periorbital areas with no swelling, redness, or edema. ENT: Nares patent. No nasal discharge, no septal abnormalities noted. Tympanic membranes are normal and external auditory canals are clear. Oropharynx with no redness, swelling, or masses, exudates, or evidence of obstruction, uvula midline. Mucous membranes moist. Neck: Trachea midline, no thyromegaly or masses palpated, and no cervical lymphadenopathy. Supple, full range of motion without nuchal rigidity, or vertebral point tenderness. No Meningismus. Cardiovascular: Regular rate and rhythm with a normal S1 and S2. No gallops, murmurs, or rubs. Normal PMI, no JVD. No pulse deficits. Respiratory: Lungs have equal breath sounds bilaterally, clear to auscultation and percussion. No rales, rhonchi or wheezes noted. No increased work of breathing, no retractions or nasal flaring. Back: No spinal tenderness. No costovertebral tenderness. Full range of motion. Skin: Warm, dry with normal turgor. Normal color with no rashes, no lesions, and no evidence of cellulitis. MS/ Extremity: Pulses equal, no cyanosis. Neurovascular intact. Full, normal range of motion. Neuro: Awake and alert, GCS 15, oriented to person, place, time, and situation. Cranial nerves II-XII grossly intact. Motor strength 5/5 in all extremities. Sensory grossly intact. Cerebellar exam normal. Normal gait. 15:41 Abdomen/GI: Inspection: distension, that is moderate, in the abdomen diffusely, Bowel sounds: normal, in the right lower quadrant and left lower quadrant, high pitched, right upper quadrant and left upper quadrant. Palpation: soft, in all quadrants, Indicators: McBurney's point is not tender, Estrada's sign is negative, Rovsing's sign is negative, Liver: tenderness, is not appreciated. Vital Signs: 14:50 BP 140 / 75; Pulse 102; Resp 24; Temp 98.3(O); Pulse Ox 90% on R/A; Weight 63 kg (R); sv Height 4 ft. 11 in. (149.86 cm); Pain 10/10; 15:57 BP 145 / 84; Pulse 95; Resp 25; Pulse Ox 95% on 2 lpm NC; sv 16:55 BP 153 / 77; Pulse 92; Resp 34; Pulse Ox 94% on 2 lpm NC; sv 17:40 BP 147 / 80; Pulse 92; Resp 22; Pulse Ox 96% on 2 lpm NC; sv 18:30 BP 152 / 92; Pulse 97; Resp 21; Pulse Ox 95% ; sv 19:15 BP 146 / 80; Pulse 88; Resp 25 S; Temp 98.3(O); Pulse Ox 95% on 2 lpm NC; cc3 20:15 BP 157 / 94; Pulse 90; Resp 25 S; Pulse Ox 95% on 2 lpm NC; cc3 21:20 BP 153 / 87; Pulse 89; Resp 26 S; Pulse Ox 95% on 2 lpm NC; cc3 14:50 Body Mass Index 28.05 (63.00 kg, 149.86 cm) sv 14:50 Pt placed on O2 \\T\\ 2L per NC. O2 sat up to 96%. sv MDM: 15:26 Patient medically screened. jr8 18:03 Data reviewed: vital signs, nurses notes, lab test result(s), radiologic studies, CT jr8 scan. Data interpreted: Pulse oximetry: on room air is 96 %. Interpretation: normal. Counseling: I had a detailed discussion with the patient and/or guardian regarding: the historical points, exam findings, and any diagnostic results supporting the discharge/admit diagnosis, lab results, radiology results, the need for further work-up and treatment in the hospital. Physician consultation: Aurora Campos MD was called at 18:06, was contacted at 18:06, regarding admission, to the telemetry unit. consult, patient's condition, and will see patient. ED course: Dr. Jay consulted and will see patient as well. Will get GI on board for therapeutic colonoscopy . 18:37 ED course: Dr. Gant consulted and will see patient . 8 12/13 15:26 Order name: Basic Metabolic Panel; Complete Time: 16:49 12/13 15:26 Order name: CBC with Diff; Complete Time: 16:49 12/13 15:26 Order name: Creatinine for Radiology; Complete Time: 17:02 12/13 15:26 Order name: Hepatic Function; Complete Time: 16:49 12/13 15:26 Order name: Lipase; Complete Time: 16:49 12/13 15:26 Order name: CT Abd/Pelvis - W/Contrast; Complete Time: 17:33 12/13 15:26 Order name: IV Saline Lock; Complete Time: 15:57 12/13 15:26 Order name: Labs collected and sent; Complete Time: 15:57 12/13 18:47 Order name: CONS Physician Consult EDMS Administered Medications: 18:45 Drug: Zofran 4 mg Route: IVP; Site: right forearm; sv 19:20 Follow up: Response: No adverse reaction; Nausea is decreased cc3 18:47 Drug: fentaNYL (PF) 25 mcg Route: IVP; Site: right forearm; sv 19:20 Follow up: Response: No adverse reaction; Pain is decreased cc3 Disposition: 12/14 07:01 Co-signature as Attending Physician, Rakan Holt MD I agree with the assessment and kdr plan of care. Disposition: 12/13/18 18:08 Hospitalization ordered by Aurora Campos for Inpatient Admission. Preliminary diagnosis is Abdominal distension (gaseous) - R/O [place] Syndrome . - Bed requested for Telemetry/MedSurg (Inpatient). - Status is Inpatient Admission. cc3 - Condition is Fair. - Problem is new. - Symptoms are unchanged. UTI on Admission? No Signatures: Dispatcher [employer] EDTX Joselin Small RN RN sv Webb, Martha, RN RN Rakan Holt MD MD [facility] Gerber Del Real PA PA jr8 Marlyn Hooper cc3 Corrections: (The following items were deleted from the chart) 12/13 20:17 18:08 Hospitalization Ordered by Aurora Campos MD for Inpatient Admission. Preliminary mw diagnosis is Abdominal distension (gaseous) - R/O [place] Syndrome . Bed requested for Telemetry/MedSurg (Inpatient). Status is Inpatient Admission. Condition is Fair. Problem is new. Symptoms are unchanged. UTI on Admission? No. jr8 21:58 20:17 12/13/2018 18:08 Hospitalization Ordered by Aurora Campos MD for Inpatient cc3 Admission. Preliminary diagnosis is Abdominal distension (gaseous) - R/O [place] Syndrome . Bed requested for Telemetry/MedSurg (Inpatient). Status is Inpatient Admission. Condition is Fair. Problem is new. Symptoms are unchanged. UTI on Admission? No. mw
--- NOTE | 2018-12-13 18:09 | ER ---
Nurse's Notes [facility] Name: Mira Pinto Age: 83 yrs Sex: Female : 1935 Arrival Date: 12/13/2018 Time: 14:54 Bed 18 Private MD: Diagnosis: Abdominal distension (gaseous)-R/O Mable Syndrome Presentation: 12/13 14:48 Presenting complaint: EMS states: called out by daughter, who called [facility] to get sv her admitted and they told her to bring her to the ER and we can transfer her to their facility. On EMS arrival pt was noted to have abd distention. BP 136/82 HR-110 98% RA. Transition of care: patient was not received from another setting of care. Onset of symptoms was December 13, 2018. Risk Assessment: Do you want to hurt yourself or someone else? Patient reports no desire to harm self or others. Initial Sepsis Screen: Does the patient meet any 2 criteria? No. Patient's initial sepsis screen is negative. Does the patient have a suspected source of infection? No. Patient's initial sepsis screen is negative. Care prior to arrival: None. 14:48 Method Of Arrival: EMS: [facility] sv 14:48 Acuity: JOSE 3 sv Triage Assessment: 14:48 General: Appears in no apparent distress. uncomfortable, well groomed, well developed, sv Behavior is cooperative, anxious. Pain: Complains of pain in abdomen Pain currently is 10 out of 10 on a pain scale. Pain began today Is continuous. Neuro: Level of Consciousness is awake, alert, obeys commands, Oriented to person, place, time, situation, Moves all extremities. Full function. Respiratory: Airway is patent Respiratory effort is even, unlabored, Respiratory pattern is regular, symmetrical. GI: Abdomen is round distended, Abd is soft X 4 quads Abdomen is tender to palpation X 4 quads. Derm: Skin is pink, warm \\T\\ dry. 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 - Social history:: Smoking status: Patient/guardian denies using tobacco. - Ebola Screening: : No symptoms or risks identified at this time. Screenin:19 Abuse screen: Denies threats or abuse. Denies injuries from another. Nutritional sv screening: No deficits noted. Tuberculosis screening: No symptoms or risk factors identified. Fall Risk None identified. Assessment: 16:00 Reassessment: Patient appears in no apparent distress at this time. No changes from sv previously documented assessment. Patient and/or family updated on plan of care and expected duration. Pain level reassessed. Patient is alert, oriented x 3, equal unlabored respirations, skin warm/dry/pink. 17:00 Reassessment: Patient appears in no apparent distress at this time. No changes from sv previously documented assessment. Patient and/or family updated on plan of care and expected duration. Pain level reassessed. Patient is alert, oriented x 3, equal unlabored respirations, skin warm/dry/pink. 18:45 Reassessment: Patient appears in no apparent distress at this time. No changes from sv previously documented assessment. Patient and/or family updated on plan of care and expected duration. Pain level reassessed. Patient is alert, oriented x 3, equal unlabored respirations, skin warm/dry/pink. Family remains at the bedside. 19:20 Reassessment: Patient appears in no apparent distress at this time. Patient and/or cc3 family updated on plan of care and expected duration. Pain level reassessed. Patient is alert, oriented x 3, equal unlabored respirations, skin warm/dry/pink. Received this female patient from morning shift CLARISA Olivera as a case of abdominal distention for admission awaiting for admission orders. With IV cannula gauge 22 at the right forearm saline locked. noticed 2 bruises about 2cm and 3cm in length at the lateral left thigh which were sustained from previous falls as per the patient's daughters. Derm: Bruising that is dark purple, on left lateral thigh. 19:20 GI: Bowel sounds present X 4 quads. cc3 20:27 Reassessment: Patient appears in no apparent distress at this time. Patient and/or cc3 family updated on plan of care and expected duration. Pain level reassessed. Patient is alert, oriented x 3, equal unlabored respirations, skin warm/dry/pink. 21:10 Reassessment: Patient appears in no apparent distress at this time. Patient and/or cc3 family updated on plan of care and expected duration. Pain level reassessed. Patient is alert, oriented x 3, equal unlabored respirations, skin warm/dry/pink. Patient for admission, room available to 402, report called and handed over to RN Nola Choi for continuity of care and management. 21:50 Reassessment: Patient left ER for admission vitally stable by stretcher escorted by ED cc3 mando Antonio and the patient's daughter. Patient denies pain at this time. Vital Signs: 14:50 BP 140 / 75; Pulse 102; Resp 24; Temp 98.3(O); Pulse Ox 90% on R/A; Weight 63 kg (R); sv Height 4 ft. 11 in. (149.86 cm); Pain 10/10; 15:57 BP 145 / 84; Pulse 95; Resp 25; Pulse Ox 95% on 2 lpm NC; sv 16:55 BP 153 / 77; Pulse 92; Resp 34; Pulse Ox 94% on 2 lpm NC; sv 17:40 BP 147 / 80; Pulse 92; Resp 22; Pulse Ox 96% on 2 lpm NC; sv 18:30 BP 152 / 92; Pulse 97; Resp 21; Pulse Ox 95% ; sv 19:15 BP 146 / 80; Pulse 88; Resp 25 S; Temp 98.3(O); Pulse Ox 95% on 2 lpm NC; cc3 20:15 BP 157 / 94; Pulse 90; Resp 25 S; Pulse Ox 95% on 2 lpm NC; cc3 21:20 BP 153 / 87; Pulse 89; Resp 26 S; Pulse Ox 95% on 2 lpm NC; cc3 14:50 Body Mass Index 28.05 (63.00 kg, 149.86 cm) sv 14:50 Pt placed on O2 \\T\\ 2L per NC. O2 sat up to 96%. sv ED Course: 14:54 Patient arrived in ED. ss 14:55 Arm band placed on. sv 14:55 Patient has correct armband on for positive identification. Bed in low position. Call sv light in reach. Side rails up X2. Adult w/ patient. surveillance system monitor on. Pulse ox on. NIBP on. Door closed. Warm blanket given. Head of bed elevated. 15:02 Joselin Small RN is Primary Nurse. sv 15:04 Gerber Del Real PA is PHCP. jr8 15:04 Rakan Holt MD is Attending Physician. jr8 15:04 Triage completed. sv 15:20 Nurse Practitioner and/or Physician Bow Maker to see patient. sv 15:36 Radiology exam delayed due to lab results not completed at this time. (BUN/Creatinine). nj 15:45 Missed attempt(s): 22 gauge in right forearm. Bleeding controlled, band aid applied, sv catheter tip intact. 15:50 Initial lab(s) drawn, by me, sent to lab. Inserted saline lock: 22 gauge in right sv forearm, using aseptic technique. ,using aseptic technique. diffusics Blood collected. Flushed right forearm with 5 ml normal saline. 15:59 Radiology exam delayed due to lab results not completed at this time. (BUN/Creatinine). nj 16:[address] Scan. sv 17:15 CT Abd/Pelvis - W/Contrast In Process Unspecified. EDMS 17:19 Patient moved back from CT. sv 18:07 Aurora Campos MD is Hospitalizing Provider. jr8 19:05 Report given to Marlyn MCKENNA. sv 19:34 Primary Nurse role handed off by Joselin Small RN sv 20:14 Marlyn Hooper is Primary Nurse. cc3 21:10 No provider procedures requiring assistance completed. Patient admitted, IV remains in cc3 place. Administered Medications: 18:45 Drug: Zofran 4 mg Route: IVP; Site: right forearm; sv 19:20 Follow up: Response: No adverse reaction; Nausea is decreased cc3 18:47 Drug: fentaNYL (PF) 25 mcg Route: IVP; Site: right forearm; sv 19:20 Follow up: Response: No adverse reaction; Pain is decreased cc3 Outcome: 18:08 Decision to Hospitalize by Provider. jr8 21:40 Admitted to Tele accompanied by tech, family with patient, via stretcher, room 402, cc3 with oxygen, with chart, Report called to CLARISA Choi 21:40 Condition: stable 21:40 Instructed on the need for admit, Demonstrated understanding of instructions. 21:58 Patient left the ED. cc3 Signatures: Dispatcher [employer] EDMS Joselin Small RN RN sv Smirch, Shelby, RN RN ss Roszak, Josh, PA PA jr8 Chris Ospina Charlene cc3 Corrections: (The following items were deleted from the chart) 17:00 14:48 GI: Abdomen is round distended, Abdomen is tender to palpation X 4 quads. Abd is sv rigid X 4 quads. sv 19:16 14:50 BP 140 / 75; Pulse 102bpm; Resp 24bpm; Pulse Ox 90% RA; Temp 98.3F Oral; Pain sv 10/10; Pt placed on O2 \\T\\ 2L per NC. O2 sat up to 96%.; sv
[2018-12-13] MEDS ORDERED: FENTANYL CITR 100 MCG/2 ML ONE (18:53)
[2018-12-13] MEDS ORDERED: ONDANSETRON 4 MG/2 ML VIAL ONE (18:54)
--- NOTE | 2018-12-13 19:05 | P.HP ---
Certification for Inpatient Patient admitted to: Inpatient With expected LOS: >2 Midnights Practitioner: I am a practitioner with admitting privileges, knowledge of patient current condition, hospital course, and medical plan of care. Services: Services provided to patient in accordance with Admission requirements found in Title 42 Section 412.3 of the Code of Federal Regulations Patient History Date of Service: 12/13/18 Reason for admission: Abdominal distension History of Present Illness: This is a 83-year-old female with multiple medical problems along with dementia admitted for abdominal distention. Per patient's family at bedside, patient is a group home patient (carriage ameena) who has had multiple falls due to her dementia. She did fall previously on Monday and came to the ER she. She was found to have to compression vertebral fracture and she was discharged on tramadol. She was doing okay but starting yesterday she has not eaten none drinking, she cannot get up due to pain. She was also noted to have abdominal distention. So she was brought to the emergency room by ambulance. In the ER, her blood pressure was 140/75, heart rate of 102, respirations of 24 , afebrile at 98.3 and 90% saturation on room air. She was in moderate distress due to the pain. Labs were remarkable for WBC count of 14.7. CT abdominal pelvis remarkable for diffuse distention of the colon without clear obstructing mass visualized. There is areas of luminal narrowing seen involving the sigmoid colon where multiple diverticula are also present. Advise follow-up colonoscopy if not recently performed. In the ER, she received fentanyl along with IV fluids. At the time of my exam, patient was in moderate amount of pain in her back/ abdomen, she was hemodynamically stable. She was at her baseline mentation stark , confirmed by her family member. Per family, at baseline, patient only feeds herself. She needs help with everything else including ambulation. - Past Medical/Surgical History -: Dementia -: CVA -: History of thyroid cancer Review of Systems 10-point ROS is otherwise unremarkable Physical Examination - Physical Exam General: Cachectic, Moderate distress, Confused, Other (Elderly, frail) Neck: Supple, 2+ carotid pulse no bruit, No LAD, Without JVD or thyroid abnormality Cardiovascular: Regular rate/rhythm, Normal S1 S2 Gastrointestinal: Hyperactive, Distended, Tenderness Musculoskeletal: No tenderness Integumentary: No rashes - Studies Laboratory Data (last 24 hrs) 12/13/18 15:50: Creatinine 0.87 12/13/18 15:50: WBC 14.7 H, Hgb 13.3, Hct 40.2, Plt Count 395 12/13/18 15:50: Sodium 134 L, Potassium 3.8, BUN 18, Creatinine 0.84, Glucose 152 H, Total Bilirubin 0.6, AST 23, ALT 21, Alkaline Phosphatase 75, Lipase 60 L Assessment and Plan - Problems (Diagnosis) (1) Abdominal distension (gaseous) Current Visit: Yes Status: Acute Plan: Patient with diffuse colonic distension without clear obstruction. We will need to rule out Ogelvie's syndrome. Keep NPO. Fentanyl for pain control General surgery consulted. Awaiting recommendations GI consulted. Awaiting recommendations. Patient may benefit from therapeutic colonoscopy if GI agreeable. (2) Colon distention Current Visit: Yes Status: Acute (3) Dementia Current Visit: Yes Status: Chronic Qualifiers: Dementia type: Alzheimer's disease Alzheimer's disease onset: unspecified onset Dementia behavioral disturbance: without behavioral disturbance Qualified Code(s): G30.9 - Alzheimer's disease, unspecified; F02.80 - Dementia in other diseases classified elsewhere without behavioral disturbance (4) Vertebral fracture Current Visit: Yes Status: Acute Plan: Continue with pain control Qualifiers: Encounter type: subsequent encounter Fracture of vertebra location: lumbar Lumbar vertebra fracture level: L1 Fracture type: closed Fracture morphology: unspecified fracture morphology Fracture healing: with routine healing Qualified Code(s): S32.019D - Unspecified fracture of first lumbar vertebra, subsequent encounter for fracture with routine healing (5) Multiple falls Current Visit: Yes Status: Acute - Plan Admit to the floor. Pending GI and surgery evaluation. Discharge Plan: Long Term - Advance Directives Does patient have a Living Will: No Does patient have a Durable POA for Healthcare: No
[2018-12-13] MEDS ORDERED: ONDANSETRON 4 MG/2 ML VIAL IV PRN (23:01)
[2018-12-13] MEDS ORDERED: KCL 20 MEQ/100 mL IVPB 20 MEQ/100 ML BAG IV SCH (23:45)
[2018-12-13 23:47] LABS: Urine Appearance CLEAR; Urine Bilirubin NEGATIVE (NEG); Urine Blood NEGATIVE (NEG); Urine Color DK YELLOW; Urine Glucose NEGATIVE (NEG); Urine Protein NEGATIVE (NEG); Urine Specific Gravity >=1.030 (1.005-1.030); Urine pH 5.5 (5.0-7.0)
[2018-12-13] MEDS: NA CHLORIDE 0.9% 1,000 ML IV SCH (23:52)
[2018-12-14 00:11] LABS: Urine Microscopic Reflex NO UMIC
[2018-12-14] MEDS ORDERED: MAGNESIUM SULFATE 1 gm IVPB 1 GM/100 ML BAG IV ONE (02:12)
[2018-12-14 05:51] LABS: Absolute Lymphocytes (CBC) 1.4 K/uL (0.7-4.9); Absolute Monocytes 1.5 K/uL (0.1-1.3); Absolute Neutrophil 11.8 K/uL (1.8-8.0); Basophils % 0.3 % (0-1.3); Eosinophils % 0.1 % (0-4.4); Hematocrit 38.5 % (36.0-45.0); Lymphocytes % 9.8 % (15.3-44.8); Monocytes % 9.9 % (3.3-12.3); RBC Red Blood Cell Count 4.24 M/uL (3.86-4.86)
[2018-12-14 06:03] LABS: Albumin 3.4 g/dL (3.4-5.0); Bilirubin Total 0.7 mg/dL (0.2-1.0); Magnesium 2.7 mg/dL (1.8-2.4); Phosphorus 2.9 mg/dL (2.5-4.9); Potassium 4.3 mmol/L (3.5-5.1); Protein, Total 7.9 g/dL (6.4-8.2)
[2018-12-14] MEDS ORDERED: PNEUMOCOCCAL VACCINE 0.5 ML IMVAC ONE (08:00)
--- NOTE | 2018-12-14 11:16 | RAD REPORT ---
EXAM DESCRIPTION: RAD - Colon-Ba Enema-Therapeutic - 12/14/2018 11:02 am CLINICAL HISTORY: ABD/colon distention COMPARISON: Abdomen Pelvis W Contrast dated 12/13/2018 FINDINGS: Therapeutic Gastrografin enema was performed. A rectal tube was placed in the entire colon was filled with Gastrografin contrast. Significant retained stool is present in the colon. Sigmoid d iverticulosis coli is present. Total fluoro time: 1.5 minutes Number of images acquired: 10 IMPRESSION: Therapeutic Gastrografin enema was performed. Significant retained stool is seen in the colon. Sigmoid diverticulosis coli without diverticulitis.
[2018-12-14] MEDS: TRAMADOL HCL 50 MG TAB PO PRN ×2 (11:33→20:48)
[2018-12-14] MEDS: NA CHLORIDE 0.9% 1,000 ML IV SCH (11:44)
--- NOTE | 2018-12-14 15:27 | P.PN ---
Subjective Date of Service: 12/14/18 Chief Complaint: Abdominal distension Subjective: Improving Patient seen and examined at bedside. Family at bedside. Chart reviewed and case discussed with nursing staff. Patient reports no abdominal or back pain at this time. Reports improvement in abdominal discomfort. Review of Systems 10-point ROS is otherwise unremarkable Physical Examination - Vital Signs Temperature: 98.9 F Blood Pressure: 139/75 Pulse: 89 Respirations: 20 Pulse Ox (%): 91 - Physical Exam General: Alert, In no apparent distress Respiratory: Clear to auscultation bilaterally, Normal air movement Cardiovascular: Regular rate/rhythm, Normal S1 S2 Gastrointestinal: Hyperactive, Distended - Studies Laboratory Data (last 24 hrs) 12/13/18 15:50: Creatinine 0.87 12/13/18 15:50: WBC 14.7 H, Hgb 13.3, Hct 40.2, Plt Count 395 12/13/18 15:50: Sodium 134 L, Potassium 3.8, BUN 18, Creatinine 0.84, Glucose 152 H, Total Bilirubin 0.6, AST 23, ALT 21, Alkaline Phosphatase 75, Lipase 60 L Assessment And Plan - Current Problems (Diagnosis) (1) Abdominal distension (gaseous) Current Visit: Yes Status: Acute Plan: Patient with diffuse colonic distension without clear obstruction. We will need to rule out Ogelvie's syndrome. Keep NPO. Tramadol for pain control General surgery consulted. Awaiting recommendations GI consulted. Patient to undergo therapeutic colonic barium enema today. (2) Colon distention Current Visit: Yes Status: Acute (3) Dementia Current Visit: Yes Status: Chronic Qualifiers: Dementia type: Alzheimer's disease Alzheimer's disease onset: unspecified onset Dementia behavioral disturbance: without behavioral disturbance Qualified Code(s): G30.9 - Alzheimer's disease, unspecified; F02.80 - Dementia in other diseases classified elsewhere without behavioral disturbance (4) Vertebral fracture Current Visit: Yes Status: Acute Plan: Continue with pain control Physical therapy consult Qualifiers: Encounter type: subsequent encounter Fracture of vertebra location: lumbar Lumbar vertebra fracture level: L1 Fracture type: closed Fracture morphology: unspecified fracture morphology Fracture healing: with routine healing Qualified Code(s): S32.019D - Unspecified fracture of first lumbar vertebra, subsequent encounter for fracture with routine healing (5) Multiple falls Current Visit: Yes Status: Acute Plan: Likely secondary to dementia SW consulted for placement - patient may benefit from SNF placement. - Plan Continue to monitor on the floor. Pending GI and surgery evaluation, therapeutic colonic barium enema. SW on board, pending placement.
[2018-12-14] MEDS ORDERED: FLEET ENEMA ADULT PR ONE (18:00)
[2018-12-14] MEDS ORDERED: GOLYTELY 4000 ML PO ONE (18:00)
[2018-12-14] MEDS ORDERED: MAGNESIUM CITRATE 300 ML BOT PO ONE (18:00)
[2018-12-14] MEDS: METOCLOPRAMIDE 10 MG/2mL INJ IV SCH ×2 (18:30→23:28)
[2018-12-14] MEDS: MEMANTINE HCL 10 MG TABLET PO SCH (20:47)
[2018-12-14] MEDS: CITALOPRAM 10 MG TABLET PO SCH (20:48)
[2018-12-14] MEDS: MELATONIN 3 MG TABLET PO SCH (20:48)
[2018-12-14] MEDS: levETIRAcetam 500 MG TAB PO SCH (20:48)
[2018-12-14] MEDS: ATORVASTATIN 10 MG TAB PO SCH (20:48)
[2018-12-14] MEDS ORDERED: LEVETIRACETAM PO SCH (21:00)
[2018-12-14] MEDS ORDERED: HOME MED 1 EA UNK (Simvastatin [Simvastatin] 1 TAB) PO SCH (21:00)
[2018-12-14] MEDS ORDERED: HOME MED 1 EA UNK (Citalopram Hydrobromide [Citalopram Hbr] 1 TAB) PO SCH (21:00)
[2018-12-15] MEDS: NA CHLORIDE 0.9% 1,000 ML IV SCH ×3 (00:06→17:05)
[2018-12-15] MEDS: METOCLOPRAMIDE 10 MG/2mL INJ IV SCH (05:37)
[2018-12-15] MEDS: LEVOTHYROXINE SOD 0.1 MG TAB PO SCH (05:37)
[2018-12-15 06:19] LABS: ALT/SGPT 22 U/L (12-78); AST/SGOT 27 U/L (15-37); Absolute Lymphocytes (CBC) 1.7 K/uL (0.7-4.9); Absolute Monocytes 1.6 K/uL (0.1-1.3); Absolute Neutrophil 13.1 K/uL (1.8-8.0); Albumin 3.1 g/dL (3.4-5.0); Alkaline Phosphatase 66 U/L (45-117); BUN Blood Urea Nitrogen 19 mg/dL (7-18); Basophils % 0.1 % (0-1.3); Bicarbonate 30 mmol/L (21-32); Bilirubin Total 0.6 mg/dL (0.2-1.0); Eosinophils % 0.2 % (0-4.4); Glucose Level 120 mg/dL (74-106); Hematocrit 38.4 % (36.0-45.0); Lymphocytes % 10.3 % (15.3-44.8); MPV 7.9 fL (7.6-11.3); Monocytes % 9.8 % (3.3-12.3); Potassium 3.6 mmol/L (3.5-5.1); Protein, Total 7.5 g/dL (6.4-8.2); RBC Red Blood Cell Count 4.25 M/uL (3.86-4.86); Sodium Level 139 mmol/L (136-145)
[2018-12-15] MEDS ORDERED: POTASSIUM CL SA 10 MEQ TAB PO ONE (07:31)
[2018-12-15 08:42] LABS: Blood Morphology Comment NOTED (NOT SEEN); Platelet Estimate ADEQ; Platelets, Giant FEW; Poikilocytosis 1+; Urine White Blood Cell Casts OK
[2018-12-15] MEDS: FERROUS SULFATE 325 MG TAB PO SCH (08:50)
[2018-12-15] MEDS: MEMANTINE HCL 10 MG TABLET PO SCH ×2 (08:50→21:16)
[2018-12-15] MEDS: levETIRAcetam 500 MG TAB PO SCH ×2 (08:50→21:16)
[2018-12-15] MEDS: PANTOPRAZOLE 40MG TABLET PO SCH (08:50)
[2018-12-15] MEDS: ESLICARBAZEPINE ACETATE PO SCH (08:51)
[2018-12-15] MEDS ORDERED: HOME MED 1 EA UNK (Levothyroxine Sodium [Levothyroxine Sodium] 1 TAB) PO SCH (09:00)
[2018-12-15] MEDS ORDERED: HOME MED 1 EA UNK (Omeprazole [Prilosec] 1 CAP) PO SCH (09:00)
--- NOTE | 2018-12-15 12:49 | P.PN ---
Subjective Date of Service: 12/15/18 Chief Complaint: Abdominal distension Patient seen and examined at bedside. Family at bedside. Chart reviewed and case discussed with nursing staff. Patient reports no abdominal or back pain at this time. Reports improvement in abdominal discomfort. Colonoscopy was scheduled, patient not cooperative with colon prep. Therefore colonoscopy canceled. Review of Systems 10-point ROS is otherwise unremarkable Physical Examination - Vital Signs Temperature: 98.9 F Blood Pressure: 141/81 Pulse: 95 Respirations: 20 Pulse Ox (%): 96 - Physical Exam General: In no apparent distress, Demented, Confused Neck: Supple, JVD not distended Respiratory: Clear to auscultation bilaterally, Normal air movement Cardiovascular: Regular rate/rhythm, Normal S1 S2 Gastrointestinal: Distended Musculoskeletal: No tenderness Assessment And Plan - Current Problems (Diagnosis) (1) Abdominal distension (gaseous) Current Visit: Yes Status: Acute Plan: Patient with diffuse colonic distension without clear obstruction. We will need to rule out Ogelvie's syndrome. Clear liquid diet, tolerating. Tramadol for pain control General surgery consulted. Awaiting recommendations GI consulted. Patient to status post therapeutic colonic barium enema today. Colonoscopy was planned by GI. Patient not cooperative with colon prep therefore colonoscopy canceled. (2) Colon distention Current Visit: Yes Status: Acute (3) Dementia Current Visit: Yes Status: Chronic Qualifiers: Dementia type: Alzheimer's disease Alzheimer's disease onset: unspecified onset Dementia behavioral disturbance: without behavioral disturbance Qualified Code(s): G30.9 - Alzheimer's disease, unspecified; F02.80 - Dementia in other diseases classified elsewhere without behavioral disturbance (4) Vertebral fracture Current Visit: Yes Status: Acute Plan: Continue with pain control Physical therapy consult Qualifiers: Encounter type: subsequent encounter Fracture of vertebra location: lumbar Lumbar vertebra fracture level: L1 Fracture type: closed Fracture morphology: unspecified fracture morphology Fracture healing: with routine healing Qualified Code(s): S32.019D - Unspecified fracture of first lumbar vertebra, subsequent encounter for fracture with routine healing (5) Multiple falls Current Visit: Yes Status: Acute Plan: Likely secondary to dementia SW consulted for placement - patient may benefit from SNF placement. - Plan Continue to monitor on the floor. SW on board, pending placement. Extensive discussion with family regarding goals of care and option of hospice care. Family is interested in pursuing hospice. A list of hospice companies given to the family, to decide. In patient may potentially discharge back to [facility] with hospice versus another long-term facility with hospice.
--- NOTE | 2018-12-15 14:57 | P.PN ---
Subjective Date of Service: 12/15/18 Chief Complaint: Abdominal distension Subjective: No new changes (She refused colonoscopy and tap water enemas this morning. Three of her daughters are in the room with her now, & she now agrees to colonoscopy and enemas. She has dementia, stating she does not remember the fleet enema from last night. Daughters report she had some small stools this morning though she seems slightly more distended. Family has decided to do colonoscopy Monday since tomorrow is mother's day and decided on hospice after discharge.) Review of Systems 10-point ROS is otherwise unremarkable General: Weakness Gastrointestinal: Distention Physical Examination - Vital Signs Temperature: 98.9 F Blood Pressure: 141/81 Pulse: 95 Respirations: 20 Pulse Ox (%): 96 - Physical Exam General: Alert, In no apparent distress, Oriented x3 HEENT: Atraumatic, Normocephalic, PERRLA, EOMI Neck: Supple Respiratory: Normal air movement Cardiovascular: Normal pulses Gastrointestinal: No rebound, Distended (moderate with tympany ) Neurological: Normal speech Assessment And Plan - Current Problems (Diagnosis) (1) Abnormal CT of the abdomen Current Visit: Yes Status: Acute (2) Abdominal distension (gaseous) Current Visit: Yes Status: Acute (3) Dementia Current Visit: Yes Status: Chronic Qualifiers: Dementia type: Alzheimer's disease Alzheimer's disease onset: unspecified onset Dementia behavioral disturbance: without behavioral disturbance Qualified Code(s): G30.9 - Alzheimer's disease, unspecified; F02.80 - Dementia in other diseases classified elsewhere without behavioral disturbance - Plan REC: 1) colonoscopy on Monday 2) monitor labs and replete immediately 3) clear liquids
--- NOTE | 2018-12-15 16:03 | RAD REPORT ---
EXAM DESCRIPTION: RAD - Abdomen 1 View (KUB) - 12/15/2018 3:55 pm CLINICAL HISTORY: obstruction Pain COMPARISON: Abdomen Pelvis W Contrast dated 12/13/2018; Colon-Ba Enema-Therapeutic dated 12/14/2018 FINDINGS: Diffuse dilatation of the colon in several small bowel loops are present, favoring adynami c ileus. The cecum in particular is quite prominent in size. Pneumoperitoneum is not identified. IMPRESSION: Prominent diffuse adynamic ileus suspected.
[2018-12-15] MEDS: SIMETHICONE 125 MG TAB PO SCH ×2 (17:05→21:15)
[2018-12-15] MEDS: TRAMADOL HCL 50 MG TAB PO PRN (17:59)
[2018-12-15] MEDS: ATORVASTATIN 10 MG TAB PO SCH (21:15)
[2018-12-15] MEDS: MELATONIN 3 MG TABLET PO SCH (21:16)
[2018-12-15] MEDS: CITALOPRAM 10 MG TABLET PO SCH (21:20)
[2018-12-16] MEDS: SIMETHICONE 125 MG TAB PO SCH ×4 (04:46→22:00)
[2018-12-16 05:47] LABS: Absolute Lymphocytes (CBC) 1.3 K/uL (0.7-4.9); Absolute Neutrophil 13.5 K/uL (1.8-8.0); Basophils % 0.5 % (0-1.3); Eosinophils % 0.1 % (0-4.4); Hematocrit 40.2 % (36.0-45.0); MPV 8.1 fL (7.6-11.3); Monocytes % 6.5 % (3.3-12.3); RBC Red Blood Cell Count 4.41 M/uL (3.86-4.86)
[2018-12-16] MEDS: LEVOTHYROXINE SOD 0.1 MG TAB PO SCH (06:06)
[2018-12-16 06:09] LABS: ALT/SGPT 19 U/L (12-78); AST/SGOT 22 U/L (15-37); Alkaline Phosphatase 62 U/L (45-117); BUN Blood Urea Nitrogen 12 mg/dL (7-18); Bicarbonate 27 mmol/L (21-32); Bilirubin Total 0.5 mg/dL (0.2-1.0); Glucose Level 102 mg/dL (74-106); Magnesium 2.8 mg/dL (1.8-2.4); Phosphorus 2.3 mg/dL (2.5-4.9); Potassium 3.9 mmol/L (3.5-5.1); Protein, Total 7.1 g/dL (6.4-8.2); Sodium Level 138 mmol/L (136-145)
[2018-12-16] MEDS: PANTOPRAZOLE 40MG TABLET PO SCH (08:19)
[2018-12-16] MEDS: levETIRAcetam 500 MG TAB PO SCH ×2 (08:19→20:03)
[2018-12-16] MEDS: ESLICARBAZEPINE ACETATE PO SCH (08:19)
[2018-12-16] MEDS: MEMANTINE HCL 10 MG TABLET PO SCH ×2 (08:19→20:03)
[2018-12-16] MEDS: FERROUS SULFATE 325 MG TAB PO SCH (08:19)
[2018-12-16] MEDS ORDERED: POTASSIUM PHOS IN 0.9 % NACL 15 MMOL/250 ML BAG IV ONE (09:00)
--- NOTE | 2018-12-16 11:21 | P.PN ---
Subjective Date of Service: 12/16/18 Chief Complaint: Abdominal distension Subjective: No new changes (One bowel movement yesterday, none so far today (11 AM now). Tolerating CLs well.) Review of Systems 10-point ROS is otherwise unremarkable General: Weakness Physical Examination - Vital Signs Temperature: 97.2 F Blood Pressure: 175/98 Pulse: 99 Respirations: 20 Pulse Ox (%): 94 - Physical Exam General: Alert, In no apparent distress, Oriented x2 (mild confusion), Cooperative HEENT: Atraumatic, Normocephalic, PERRLA, EOMI Neck: Supple Respiratory: Normal air movement Cardiovascular: Normal pulses Assessment And Plan - Current Problems (Diagnosis) (1) Abnormal CT of the abdomen Current Visit: Yes Status: Acute (2) Abdominal distension (gaseous) Current Visit: Yes Status: Acute (3) Dementia Current Visit: Yes Status: Chronic Qualifiers: Dementia type: Alzheimer's disease Alzheimer's disease onset: unspecified onset Dementia behavioral disturbance: without behavioral disturbance Qualified Code(s): G30.9 - Alzheimer's disease, unspecified; F02.80 - Dementia in other diseases classified elsewhere without behavioral disturbance - Plan REC: 1) colonoscopy tomorrow 2) monitor labs and replete immediately 3) clear liquids & NPO after 8 PM tonight 4) will discuss Neostigmine 2 mg IV therapy with patient and family today (gone to latter-day)
[2018-12-16] MEDS ORDERED: HYDRALAZINE HCL 20 MG/ML VIAL IV ONE (12:00)
[2018-12-16] MEDS: NA CHLORIDE 0.9% 1,000 ML IV SCH ×2 (12:15→21:54)
--- NOTE | 2018-12-16 12:18 | P.PN ---
Subjective Date of Service: 12/16/18 Chief Complaint: Abdominal distension Subjective: No new changes Patient seen and examined at bedside. Family at bedside. Chart reviewed and case discussed with nursing staff. Patient reports no abdominal or back pain at this time. Reports improvement in abdominal discomfort. Colonoscopy was scheduled, patient not cooperative with colon prep. Therefore colonoscopy canceled. Discussed with family and they would like to try again tomorrow. Review of Systems 10-point ROS is otherwise unremarkable Physical Examination - Vital Signs Temperature: 97.2 F Blood Pressure: 175/98 Pulse: 99 Respirations: 20 Pulse Ox (%): 94 - Physical Exam General: Alert, In no apparent distress, Confused Respiratory: Clear to auscultation bilaterally, Normal air movement Cardiovascular: Regular rate/rhythm, Normal S1 S2 Gastrointestinal: Distended Assessment And Plan - Current Problems (Diagnosis) (1) Abdominal distension (gaseous) Current Visit: Yes Status: Acute Plan: Patient with diffuse colonic distension without clear obstruction. We will need to rule out Ogelvie's syndrome. Clear liquid diet, tolerating. Tramadol for pain control General surgery consulted. No surgical intervention planned at this time. Recommendations appreciated GI consulted. Patient to status post therapeutic colonic barium enema. Colonoscopy was planned by GI. Patient was not cooperative with colon prep therefore colonoscopy canceled. This was discussed with the family, patient was not cooperative due to her dementia. Family states that they would like to be here and try again, but non mother's Day. Colonoscopy is planned for Monday12/17/2018. (2) Colon distention Current Visit: Yes Status: Acute (3) Dementia Current Visit: Yes Status: Chronic Plan: Stable, at baseline mentation Qualifiers: Dementia type: Alzheimer's disease Alzheimer's disease onset: unspecified onset Dementia behavioral disturbance: without behavioral disturbance Qualified Code(s): G30.9 - Alzheimer's disease, unspecified; F02.80 - Dementia in other diseases classified elsewhere without behavioral disturbance (4) Vertebral fracture Current Visit: Yes Status: Acute Plan: Continue with pain control Physical therapy consult Qualifiers: Encounter type: subsequent encounter Fracture of vertebra location: lumbar Lumbar vertebra fracture level: L1 Fracture type: closed Fracture morphology: unspecified fracture morphology Fracture healing: with routine healing Qualified Code(s): S32.019D - Unspecified fracture of first lumbar vertebra, subsequent encounter for fracture with routine healing (5) Multiple falls Current Visit: Yes Status: Acute Plan: Likely secondary to dementia SW consulted for placement - patient may benefit from SNF placement. (6) High blood pressure Current Visit: Yes Status: Acute Plan: No history of hypertension, no medications for blood pressure at home. Blood pressure may be elevated secondary to pain. Will start losartan 50 mg daily and monitor blood pressures. Qualifiers: Hypertension type: unspecified Qualified Code(s): I10 - Essential (primary ) hypertension - Plan Continue to monitor on the floor. Pending therapeutic colonoscopy tomorrow SW on board, pending placement. Extensive discussion with family regarding goals of care and option of hospice care. Family is interested in pursuing hospice. A list of hospice companies given to the family, to decide. [facility] another care home facility with hospice.
--- NOTE | 2018-12-16 14:35 | RAD REPORT ---
EXAM DESCRIPTION: Kaci Single View12/16/2018 2:21 pm CLINICAL HISTORY: Device placement NG tube placement FINDINGS: A nasogastric tube is coiled within a hiatal hernia within the stomach. The tip is pointi ng cranially
--- NOTE | 2018-12-16 14:59 | RAD REPORT ---
EXAM DESCRIPTION: Kaci Single View12/16/2018 2:50 pm CLINICAL HISTORY: Device placement NG tube placement FINDINGS: Nasogastric tube has been readjusted. The tip is now within the stomach within the abdomen in good position
[2018-12-16] MEDS ORDERED: BISACODYL 10 MG RECTAL SUPP PR ONE (16:00)
[2018-12-16] MEDS ORDERED: GOLYTELY 4000 ML PO SCH (17:00)
[2018-12-16] MEDS ORDERED: LORazepam 2 MG/ML VIAL IV ONE (19:18)
[2018-12-16] MEDS ORDERED: PIPER/TAZO/NS 3.375gm 3.375 GM/100 ML BAG IVPB ONE (19:19)
[2018-12-16] MEDS ORDERED: NA CHLORIDE 0.9% 500 ML IV ONE (19:48)
[2018-12-16] MEDS ORDERED: PIPERACIL/TAZO 3.375 GM VIAL IV ONE (20:02)
[2018-12-16] MEDS: MELATONIN 3 MG TABLET PO SCH (20:03)
[2018-12-16] MEDS: ATORVASTATIN 10 MG TAB PO SCH (20:03)
[2018-12-16] MEDS: CITALOPRAM 10 MG TABLET PO SCH (20:03)
[2018-12-16] MEDS ORDERED: NA CHLORIDE 0.9% 100 ML IV ONE ×2 (20:05→22:00)
[2018-12-16 20:54] LABS: Absolute Lymphocytes (CBC) 1.1 K/uL (0.7-4.9); Absolute Monocytes 1.8 K/uL (0.1-1.3); Absolute Neutrophil 12.2 K/uL (1.8-8.0); Basophils % 0.1 % (0-1.3); Hematocrit 39.4 % (36.0-45.0); Lymphocytes % 7.2 % (15.3-44.8); MPV 8.3 fL (7.6-11.3); Monocytes % 11.8 % (3.3-12.3); RBC Red Blood Cell Count 4.32 M/uL (3.86-4.86)
[2018-12-16] MEDS ORDERED: levETIRAcetam 500 MG in NA CHLORIDE 0.9% 100 ML IV ONE (21:00)
[2018-12-16 21:10] LABS: Albumin 2.9 g/dL (3.4-5.0); Bilirubin Total 0.5 mg/dL (0.2-1.0); Potassium 3.8 mmol/L (3.5-5.1); Protein, Total 6.7 g/dL (6.4-8.2)
[2018-12-16] MEDS ORDERED: LEVETIRACETAM 500 MG/5 ML VIAL IV ONE (21:46)
[2018-12-17] MEDS: SIMETHICONE 125 MG TAB PO SCH ×5 (03:37→22:00)
[2018-12-17 04:53] LABS: Phosphorus 2.7 mg/dL (2.5-4.9); Potassium 3.8 mmol/L (3.5-5.1)
[2018-12-17] MEDS: LEVOTHYROXINE SOD 0.1 MG TAB PO SCH (05:15)
[2018-12-17] MEDS ORDERED: KCL 20 MEQ/100 mL IVPB 20 MEQ/100 ML BAG IV SCH (06:00)
[2018-12-17] MEDS: NA CHLORIDE 0.9% 1,000 ML IV SCH ×2 (06:24→20:21)
[2018-12-17] MEDS: PANTOPRAZOLE 40MG TABLET PO SCH (07:30)
[2018-12-17] MEDS: ESLICARBAZEPINE ACETATE PO SCH (07:50)
[2018-12-17] MEDS: FERROUS SULFATE 325 MG TAB PO SCH (07:50)
[2018-12-17] MEDS: LOSARTAN POTASSIUM 50 MG TABLET PO SCH (09:00)
[2018-12-17] MEDS: levETIRAcetam 500 MG TAB PO SCH ×2 (09:00→20:27)
[2018-12-17] MEDS: MEMANTINE HCL 10 MG TABLET PO SCH ×2 (09:00→20:28)
--- NOTE | 2018-12-17 11:43 | P.CNS ---
Date of Consult: 12/13/18 Chief Complaint: Abdominal distension History of Present Illness: 83 y/o female with multiple medical history admitted to hospital with abdominal distention, and change in bowel habits. Pt had recent spinal fracture but no surgical intervention as per pt. Allergies codeine Allergy (Verified 12/13/18 22:31) Shortness of breath Home Medications: Acetaminophen [Mapap] 325 mg PO Q4H PRN 12/13/18 Cholecalciferol (Vitamin D3) [Vitamin D3] 1 cap PO DAILY 12/13/18 Citalopram Hydrobromide [Citalopram HBr] 1 tab PO BEDTIME 12/13/18 Cyanocobalamin (Vitamin B-12) [Vitamin B-12] 1 cap PO DAILY 12/13/18 Eslicarbazepine Acetate [Aptiom] 0.5 tab PO DAILY 12/13/18 Ferrous Sulfate 1 tab PO DAILY 12/13/18 Levothyroxine Sodium 1 tab PO DAILY 12/13/18 Melatonin [Melatin] 1 tab PO BEDTIME 12/13/18 Memantine HCl 1 tab PO BID 12/13/18 Multivitamin [Daily Belkis] 1 tab PO DAILY 12/13/18 Omeprazole [Prilosec] 1 cap PO DAILY 12/13/18 Pregabalin [Lyrica*] 1 cap PO BID 12/13/18 Sennosides/Docusate Sodium [Senexon-S Tablet] 1 tab PO DAILY PRN 12/13/18 Simvastatin 1 tab PO BEDTIME 12/13/18 Tramadol HCl [Ultram] 1 tab PO Q8H PRN 12/13/18 levETIRAcetam [Levetiracetam] 1 tab PO BID 12/13/18 - Past Medical/Surgical History Diabetic: No -: Dementia -: CVA 2008 -: History of thyroid cancer -: 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 -: half of thryoid removed -: double mastectomy 1972 -: tonsillectomy - Family History Father Notes: Heart Problems - Social History Alcohol use: No CD- Drugs: No Caffeine use: No Place of Residence: [facility] Review of Systems General: Fever (no), Chills (on), Sweats (no) Eyes: Pain (no) Respiratory: Unremarkable Cardiovascular: Unremarkable Gastrointestinal: Nausea, Vomiting (no), Abdominal Pain, Distention, As per HPI Genitourinary: Dysuria (no), Frequency (no) Physical Examination Temp Pulse Resp BP Pulse Ox 98.6 F 106 H 20 153/80 H 95 12/17/18 08:00 12/17/18 08:00 12/17/18 08:00 12/17/18 08:00 12/17/18 08:00 General: Alert, Oriented x3, Cooperative HEENT: PERRLA, Sclerae nonicteric Neck: Supple Respiratory: Normal air movement Gastrointestinal: No rebound, No guarding, Distended, Tenderness (mild generalized) Musculoskeletal: No erythema, No tenderness, No warmth Integumentary: No rashes Rectal: Deferred Imagings Data: reviewed Conclusions/Impression: Colonic dsitention, unknown etioligy. No poritonitis, abd soft and depressible. We will ask GI to help us determine the etiology of her distal partial obstruction causing this distention. Pt doesnt remember any prior colonoscopy. Emergent EXP lap BAR fully explained if her clinical status deteriorate requiring that prior to work up.
--- NOTE | 2018-12-17 11:47 | P.PN ---
Subjective Date of Service: 12/14/18 Chief Complaint: Abdominal distension, Subjective: No new changes Review of Systems Gastrointestinal: Diarrhea (no), Distention, Melena (no), As per HPI Genitourinary: Dysuria (no) Physical Examination - Vital Signs Temperature: 98.6 F Blood Pressure: 153/80 Pulse: 106 Respirations: 20 Pulse Ox (%): 95 - Physical Exam General: Alert, In no apparent distress, Oriented x3, Cooperative HEENT: PERRLA, EOMI Neck: Supple Gastrointestinal: No rebound, No guarding, Distended Assessment And Plan - Plan Pt going now for radiological work up ambulation if possible fall precaution GI consult
--- NOTE | 2018-12-17 11:51 | P.PN ---
Subjective Date of Service: 12/15/18 Chief Complaint: Abdominal distension, Subjective: Improving Review of Systems Respiratory: Shortness of Breath (no) Cardiovascular: Chest Pain (no) Gastrointestinal: Nausea (no), Vomiting (no), Distention, As per HPI Genitourinary: Dysuria (no) Physical Examination - Vital Signs Temperature: 98.6 F Blood Pressure: 153/80 Pulse: 106 Respirations: 20 Pulse Ox (%): 95 - Physical Exam General: Alert, Oriented x3 Cardiovascular: No edema Gastrointestinal: Soft and benign, No rebound, No guarding Musculoskeletal: No swelling - Studies Imagings Data: BE study reviewed Assessment And Plan - Plan Pt as schedule today for colonoscopy but she doesnt want to do it today. SHe feel better , passing gas. WE still like to know if there any pathology either neoplasia or just stricture causing this proximal colonic distention
[2018-12-17] MEDS ORDERED: PROPOFOL 200 MG/20 ML VIAL IV ONE (12:48)
[2018-12-17] MEDS ORDERED: LIDOCAINE 1% MPF 2 ML AMPULE ONE (12:48)
[2018-12-17] MEDS ORDERED: GLYCOPYRROLATE 0.2 MG/ML SYR ONE ×4 (13:18)
[2018-12-17] MEDS ORDERED: NEOSTIGMINE 1 MG/ML -10 ML VIAL ONE (13:18)
--- NOTE | 2018-12-17 13:33 | ENDO RPT ---
[address], [address] COLONOSCOPY PROCEDURE REPORT EXAM DATE: 12/17/2018 PATIENT NAME: Mira Pinto MR #: [id number] BIRTHDATE: 1935 ATTENDING: Tenzin Gant Dr STATUS: inpatient - 7 HUMAN INTELLIGENCE: Lianna Frost, Zeynep Nguyen RN, and Clarence Odell RN INDICATIONS: The patient is a 83 yr old Female here for a colonoscopy due to abnormal CT of abdomen and abdominal pain PROCEDURE PERFORMED: Colonoscopy MEDICATIONS: Per Anesthesia. ESTIMATED BLOOD LOSS: None CONSENT: The patient understands the risks and benefits of the procedure and understands that these risks include, but are not limited to: sedation, allergic reaction, infection, perforation and/or bleeding. Alternative means of evaluation and treatment include, among others: physical exam, x-rays, and/or surgical intervention. The patient elects to proceed with this endoscopic procedure. DESCRIPTION OF PROCEDURE: During intra-op preparation period all mechanical medical equipment was checked for proper function. Hand hygiene and appropriate measures for infection prevention was taken. Procedure, possible complications, alternatives including, but not limited to possibility of bleeding, perforation, tear, infection, sepsis, need for surgery, need for blood transfusion, were explained to the patient. After the risks, benefits and alternatives of the procedure were thoroughly explained, Informed consent was verified, confirmed and timeout was successfully executed by the treatment team. The patient was placed in the left lateral position. A digital rectal exam was performed and revealed no abnormalities of the rectum. After appropriate level of anesthesia, the scope was passed. The [id number] ([id number]) endoscope was introduced through the anus and advanced to the cecum, which was identified by both the appendix and ileocecal valve. The quality of the prep was fair. The instrument was then slowly withdrawn as the colon was fully examined. Scope withdrawal time was 9 minutes. COLON FINDINGS: A single bleeding, round and shallow ulcer ranging between 5-9mm in size with surrounding edema was found at the cecum. Two large bleeding ulcers, measuring 25 x 15mm in size, were found in the ascending colon. Moderate diverticulosis was noted throughout the entire examined colon. No bleeding was noted from the diverticulosis. Small internal hemorrhoids were found. Retroflexion was not performed. The scope was then completely withdrawn from the patient and the procedure terminated. ADVERSE EVENTS: There were no complications. IMPRESSIONS: 1. 6 mmm single shallow ulcer with small amount of heme from edge in the cecum 2. Two large shallow ulcers with minute amount of heme at the edge of ulcers, measuring 25 x 15mm in size, in the proximal ascending colon 3. Moderate diverticulosis throughout the entire examined colon, predominantly in the sigmoid colon 4. Small internal hemorrhoids 5. Intubation to cecum with HR 88-96 on cardiac monitoring -> resulted in large amount of residual stool / liquid from colon expelled / defecated RECOMMENDATIONS: 1. KUB now 2. clamp NG tube and check for residuals; if minimal to no residuals, will start clear liquid diet 3. consider repeat Neostigmine therapy in > 24 hours as indicated. RECALL: Tenzin Gant Dr eSigned: Tenzin Gant Dr 12/17/2018 1:32 PM cc: CPT CODES: ICD9 CODES: PATIENT NAME: Mira Pinto MR#: [id number]
[2018-12-17] MEDS ORDERED: SODIUM CHLORIDE 0.9% 10ML INJ IV PRN (15:19)
--- NOTE | 2018-12-17 15:23 | RAD REPORT ---
EXAM DESCRIPTION: RAD - Abdomen 1 View (KUB) - 12/17/2018 2:44 pm CLINICAL HISTORY: POST COLONOSCOPY Pain COMPARISON: Abdomen 1 View (KUB) dated 12/15/2018; Chest Single View dated 12/16/2018; Abdomen Pelvi s W Contrast dated 12/13/2018; Chest Single View dated 12/16/2018 FINDINGS: Mildly prominent small and large bowel loops are present, with several prominent small bow el loops in the central abdomen seen. Improving adynamic ileus is favored. Continued radiographic niki ssessment in 24-48 hours is suggested. Enteric tube appears to have its tip in the stomach which appears largely intrathoracic.
[2018-12-17] MEDS: METRONIDAZOLE 500mg IVPB 500 MG/100 ML BAG IV SCH (17:12)
--- NOTE | 2018-12-17 17:41 | P.PN ---
Subjective Date of Service: 12/17/18 Chief Complaint: Abdominal distension, Patient seen and examined at bedside. Family at bedside. Chart reviewed and case discussed with nursing staff. Yesterday, patient with black brown vomitus, foul-smelling. Normal seemed obstipation. NG tube was placed, put on intermittent wall suction. Colonoscopy was scheduled, patient not cooperative with colon prep. Therefore colonoscopy canceled. It is scheduled for today. Denies any pain at the time of my exam this morning. No other events noted overnight Review of Systems 10-point ROS is otherwise unremarkable Physical Examination - Vital Signs Temperature: 97.1 F Blood Pressure: 151/71 Pulse: 105 Respirations: 18 Pulse Ox (%): 95 - Physical Exam General: Alert, In no apparent distress, Demented, Confused HEENT: Atraumatic, PERRLA, EOMI Respiratory: Clear to auscultation bilaterally, Normal air movement Cardiovascular: Regular rate/rhythm, Normal S1 S2 Gastrointestinal: No tenderness, Distended Assessment And Plan - Current Problems (Diagnosis) (1) Abdominal distension (gaseous) Current Visit: Yes Status: Acute Plan: Patient with diffuse colonic distension without clear obstruction. We will need to rule out Ogelvie's syndrome. Tramadol for pain control. Currently NPO, NG tube in place. General surgery consulted. No surgical intervention planned at this time. Recommendations appreciated GI consulted. Patient status post therapeutic colonic barium enema. Colonoscopy was rescheduled for today due to patient being uncooperative previously. She is pending colonoscopy today. (2) Colon distention Current Visit: Yes Status: Acute (3) Dementia Current Visit: Yes Status: Chronic Plan: Stable, at baseline mentation Qualifiers: Dementia type: Alzheimer's disease Alzheimer's disease onset: unspecified onset Dementia behavioral disturbance: without behavioral disturbance Qualified Code(s): G30.9 - Alzheimer's disease, unspecified; F02.80 - Dementia in other diseases classified elsewhere without behavioral disturbance (4) Vertebral fracture Current Visit: Yes Status: Acute Plan: Continue with pain control Physical therapy consult Qualifiers: Encounter type: subsequent encounter Fracture of vertebra location: lumbar Lumbar vertebra fracture level: L1 Fracture type: closed Fracture morphology: unspecified fracture morphology Fracture healing: with routine healing Qualified Code(s): S32.019D - Unspecified fracture of first lumbar vertebra, subsequent encounter for fracture with routine healing (5) Multiple falls Current Visit: Yes Status: Acute Plan: Likely secondary to dementia SW consulted for placement - patient may benefit from SNF placement. (6) High blood pressure Current Visit: Yes Status: Acute Plan: No history of hypertension, no medications for blood pressure at home. Blood pressure may be elevated secondary to pain. Will continue losartan 50 mg daily and monitor blood pressures. Qualifiers: Hypertension type: unspecified Qualified Code(s): I10 - Essential (primary ) hypertension - Plan Continue to monitor on the floor. Pending therapeutic colonoscopy tomorrow SW on board, pending placement. Extensive discussion with family regarding goals of care and option of hospice care. A list of [facility] has been provided to family along with a list of hospice company. Family not 100% sure which direction they would like to go. They are pending results of the colonoscopy. Patient may potentially discharge back to [facility] with hospice versus another [facility] facility.
[2018-12-17] MEDS: ATORVASTATIN 10 MG TAB PO SCH (20:28)
[2018-12-17] MEDS: CIPROFLOXACIN 400mg IV 400 MG/200 ML BAG IV SCH (20:28)
[2018-12-17] MEDS: MELATONIN 3 MG TABLET PO SCH (20:28)
[2018-12-17] MEDS: CITALOPRAM 10 MG TABLET PO SCH (20:28)
[2018-12-18] MEDS: METRONIDAZOLE 500mg IVPB 500 MG/100 ML BAG IV SCH ×3 (00:37→17:34)
[2018-12-18] MEDS: SIMETHICONE 125 MG TAB PO SCH ×4 (04:00→20:39)
[2018-12-18] MEDS: LEVOTHYROXINE SOD 0.1 MG TAB PO SCH ×2 (05:47→06:30)
[2018-12-18] MEDS: NA CHLORIDE 0.9% 1,000 ML IV SCH ×3 (05:47→20:40)
[2018-12-18 07:56] LABS: Absolute Lymphocytes (CBC) 1.3 K/uL (0.7-4.9); Absolute Monocytes 1.4 K/uL (0.1-1.3); Absolute Neutrophil 5.9 K/uL (1.8-8.0); Basophils % 0.6 % (0-1.3); Eosinophils % 0.3 % (0-4.4); Hematocrit 36.1 % (36.0-45.0); Lymphocytes % 15.2 % (15.3-44.8); MPV 9.1 fL (7.6-11.3); Monocytes % 16.3 % (3.3-12.3); RBC Red Blood Cell Count 3.96 M/uL (3.86-4.86)
--- NOTE | 2018-12-18 08:40 | RAD REPORT ---
EXAM DESCRIPTION: RAD - Abdomen 1 View (KUB) - 12/18/2018 6:31 am CLINICAL HISTORY: Abdomen pain. FINDINGS: Mildly dilated small bowel with diminished air within the colon. This is without significa nt change from the prior exam and may represent an adynamic ileus or partial obstruction. Nasogastric tube is not included in the field of view and either lies within the chest nor has been r emoved
[2018-12-18 08:41] LABS: BUN Blood Urea Nitrogen 15 mg/dL (7-18); Bicarbonate 20 mmol/L (21-32); Glucose Level 101 mg/dL (74-106); Magnesium 2.2 mg/dL (1.8-2.4); Phosphorus 2.1 mg/dL (2.5-4.9); Potassium 4.9 mmol/L (3.5-5.1); Sodium Level 141 mmol/L (136-145)
[2018-12-18] MEDS: ESLICARBAZEPINE ACETATE PO SCH (09:00)
[2018-12-18 09:42] LABS: Anisocytosis 1+; Blood Morphology Comment NOTED (NOT SEEN); Platelet Estimate ADEQ; Toxic Granulation 1+
[2018-12-18] MEDS: PANTOPRAZOLE 40 MG INJ IVP SCH (09:52)
[2018-12-18] MEDS: CIPROFLOXACIN 400mg IV 400 MG/200 ML BAG IV SCH ×2 (09:52→20:40)
[2018-12-18] MEDS: LOSARTAN POTASSIUM 50 MG TABLET PO SCH (09:54)
[2018-12-18] MEDS: levETIRAcetam 500 MG TAB PO SCH ×2 (09:54→20:39)
[2018-12-18] MEDS: MEMANTINE HCL 10 MG TABLET PO SCH ×2 (09:54→20:39)
[2018-12-18] MEDS: FERROUS SULFATE 325 MG TAB PO SCH (09:54)
[2018-12-18] MEDS: POTASS/SODIUM PHOSPHATE 1 PKT POWD.PACK PO SCH ×3 (12:15→15:18)
--- NOTE | 2018-12-18 18:31 | PN ---
Date of Progress Note: 12/17/2018 Subjective: The patient was seen and examined. Chart reviewed and case discussed with RN. The [place] ent still complaining of some abdominal distention. Pain is improved. Not passing any gas. Was abl e to sit up today for 15 minutes with physical therapy. Medications: List reviewed. Code Status: Do not resuscitate. Objective: Vital Signs: Temperature 98.3, heart rate 99, blood pressure 163/79, respirations 19, an d O2 of 95% on room air. General: Awake, alert, oriented x3, not in any acute distress, elderly female. CV: S1, S2. Regular rate and rhythm. Peripheral pulses present. Respiratory: Moving air well bilaterally. Some diminished breath sounds at the bases. No wheezing or stridor. Gastrointestinal: Abdomen is soft, distended. Positive bowel sounds. No guarding or rigidity. Extremities: No clubbing, cyanosis, or edema. Neurologic: Nonfocal. Laboratory Data: Sodium 141, potassium 4.9, chloride 112, CO2 of 20, BUN 15, creatinine 0.52, glucos e 101, calcium 7.7, phosphorus 2.1, magnesium 2.2. WBC 8.7, H and H 12 and 36.1, platelets 282, neut rophils 67%. Blood cultures, no growth to date. Assessment And Plan: An 83-year-old female with: 1.Abdominal pain secondary to ileus. 2.Ileus. We will continue with NG tube suctioning. The patient had a colonoscopy done yesterday multiple ulcerations found. No mass was evident. Dr. Jay with General Surgery on board. No surgical intervention planned at this time. 3.Dementia, Alzheimer's type without behavioral disturbance, stable. 4.Lumbar vertebral fracture, L1, closed, with the routine healing. 5.Multiple falls secondary to dementia. Continue with PT, OT. The patient will benefit from SNF pl acement. 6.Elevated blood pressure without diagnosis of hypertension, may be due to pain. We will use p.r.n. blood pressure medications and monitor closely. 7.Deep vein thrombosis prophylaxis, addressed. Plan: Continue IV antibiotics. Continue PPI. Disposition: The patient is DNR. Apparently, hospice care was discussed with family yesterday by Dr Carol Campos along with discharge to halfway facilities and provide hospice. Family still decidin g which way to proceed. At this time, they have not requested more information or leaned towards hos pice. /TERA Voice ID: [id number] Report ID: [id number]
[2018-12-18] MEDS: CITALOPRAM 10 MG TABLET PO SCH (20:39)
[2018-12-18] MEDS: MELATONIN 3 MG TABLET PO SCH (20:39)
[2018-12-18] MEDS: ATORVASTATIN 10 MG TAB PO SCH (20:40)
[2018-12-19] MEDS: METRONIDAZOLE 500mg IVPB 500 MG/100 ML BAG IV SCH ×3 (00:48→16:05)
[2018-12-19] MEDS: LEVOTHYROXINE SOD 0.1 MG TAB PO SCH (05:56)
[2018-12-19] MEDS: SIMETHICONE 125 MG TAB PO SCH ×4 (05:57→20:30)
[2018-12-19] MEDS: PANTOPRAZOLE 40 MG INJ IVP SCH (08:19)
[2018-12-19] MEDS: LOSARTAN POTASSIUM 50 MG TABLET PO SCH (08:19)
[2018-12-19] MEDS: FERROUS SULFATE 325 MG TAB PO SCH (08:19)
[2018-12-19] MEDS: levETIRAcetam 500 MG TAB PO SCH ×2 (08:19→20:30)
[2018-12-19] MEDS: MEMANTINE HCL 10 MG TABLET PO SCH ×2 (08:19→20:32)
[2018-12-19 08:36] LABS: BUN Blood Urea Nitrogen 7 mg/dL (7-18); Bicarbonate 27 mmol/L (21-32); Glucose Level 95 mg/dL (74-106); Phosphorus 1.9 mg/dL (2.5-4.9); Sodium Level 140 mmol/L (136-145)
[2018-12-19] MEDS: ESLICARBAZEPINE ACETATE PO SCH (09:00)
[2018-12-19] MEDS: CIPROFLOXACIN 400mg IV 400 MG/200 ML BAG IV SCH ×2 (09:14→20:30)
[2018-12-19] MEDS: NA CHLORIDE 0.9% 1,000 ML IV SCH (11:33)
--- NOTE | 2018-12-19 18:01 | P.PN ---
Subjective Date of Service: 12/18/18 Chief Complaint: Abdominal distension, Subjective: Improving (Improving, s/p colonoscopy and Neostigmine yesterday on . Abdomen is less distended with bowel movement after Neostigmine given with minimal decrease in HR from ~ 95 to 88. WBC has finally significantly decreased from ~ 15-17 range to 10K today.) Review of Systems 10-point ROS is otherwise unremarkable General: Weakness (Improved. ) Gastrointestinal: Distention (Improved. ) Physical Examination - Vital Signs Temperature: 97.8 F Blood Pressure: 134/69 Pulse: 75 Respirations: 18 Pulse Ox (%): 94 - Physical Exam General: Alert, In no apparent distress, Oriented x2, Cooperative HEENT: Atraumatic, Normocephalic, PERRLA, EOMI Neck: Supple Respiratory: Normal air movement Cardiovascular: Normal pulses Gastrointestinal: Distended (mild, improved and obese) Assessment And Plan - Current Problems (Diagnosis) (1) Abnormal CT of the abdomen Current Visit: Yes Status: Acute (2) Abdominal distension (gaseous) Current Visit: Yes Status: Acute Comment: Improved, s/p colonoscopy (no mass , anatomical obstruction, though with diverticulosis) and Neostigmine with good response. (3) Dementia Current Visit: Yes Status: Chronic Qualifiers: Dementia type: Alzheimer's disease Alzheimer's disease onset: unspecified onset Dementia behavioral disturbance: without behavioral disturbance Qualified Code(s): G30.9 - Alzheimer's disease, unspecified; F02.80 - Dementia in other diseases classified elsewhere without behavioral disturbance - Plan REC: 1) advance diet to FLs and then slowly to GI soft 2) monitor labs and replete immediately 3) continue IV antibiotics for colitis with ulcers noted on colonoscopy ( possible barotrauma from ileus / Mable's)
--- NOTE | 2018-12-19 18:46 | RAD REPORT ---
EXAM DESCRIPTION: RAD - Abdomen 1 View (KUB) - 12/19/2018 6:26 pm CLINICAL HISTORY: Abdomen pain. FINDINGS: Since December 18 there has been a mild decrease in the dilatation of bowel compatible with m ild improvement of either the ileus or partial obstruction.
--- NOTE | 2018-12-19 18:59 | PN ---
Date of Progress Note: 12/19/2018 Subjective: The patient is seen and examined. Chart reviewed and case discussed with RN. The patie nt has NG tube removed. Case discussed with Dr. Jay. Family not present at the bedside. It wa s noted that the daughter was taking photographs of us during the examination, according to hospital policy, the patient is not allowed to take photographs or recording of any kind. She also does not h ave my permission for any sort of photograph or recording. Once the patient's daughter is back in [facility] room, we will explain to her further. Medications: List reviewed. Objective: Vital Signs: Temperature 98.4, heart rate 76, blood pressure 140/77, respirations 18, O2 95% on room air. General: Awake, alert, oriented x3. Elderly female, ill-appearing. CV: S1, S2. Peripheral pulses present. Regular rate and rhythm. Respiratory: Moving air well bilaterally except at the bases. Diminished breath sounds at the bases . No wheezing or stridor. Gastrointestinal: Abdomen is soft, still distended. Hypoactive bowel sounds. No guarding or rigidi ty. Extremities: No clubbing, cyanosis, or edema. Neurologic: Nonfocal. Laboratory Data: Sodium 140, potassium 3, chloride 108, CO2 of 27, BUN 7, creatinine 0.47, glucose 9 5, calcium 7.7, phosphorus 1.9. WBC 8.7, H and H 12 and 36.1, platelets 282, neutrophils 67%. Blood cultures, no growth to date. Assessment And Plan: An 83-year-old female with: 1.Abdominal pain secondary to ileus, possible [place] syndrome, improved. 2.Ileus. NG tube has been discontinued. The patient is passing flatus. The patient has had a colo noscopy done and found to have multiple ulcerations. No mass was present. The patient needs surgery ; however, family is unavailable at this time. Dr. Jay is to discuss further with family regard ing surgical options. 3.Alzheimer's dementia without behavioral disturbance, early onset, stable. 4.Lumbar vertebral fracture, L1, closed, with routine healing. 5.Multiple falls secondary to dementia. We will continue PT, OT. Fall precautions. 6.Elevated blood pressure without diagnosis of hypertension likely due to acute reaction to pain. C ontinue p.r.n. medications. 7.Deep vein thrombosis prophylaxis, addressed. Plan: We will follow with Dr. Jay's recommendation regarding surgery depending on family's deci flavia. They are no longer interested in hospice. The patient is still DNR. /TERA Voice ID: [id number] Report ID: [id number]
[2018-12-19] MEDS: CITALOPRAM 10 MG TABLET PO SCH (20:29)
[2018-12-19] MEDS: ATORVASTATIN 10 MG TAB PO SCH (20:30)
[2018-12-19] MEDS: MELATONIN 3 MG TABLET PO SCH (20:30)
[2018-12-19] MEDS: TRAMADOL HCL 50 MG TAB PO PRN (20:52)
[2018-12-19] MEDS: KCL 20 MEQ/100 mL IVPB 20 MEQ/100 ML BAG IV SCH (22:11)
[2018-12-20] MEDS: NA CHLORIDE 0.9% 1,000 ML IV SCH ×2 (01:46→18:55)
[2018-12-20] MEDS: METRONIDAZOLE 500mg IVPB 500 MG/100 ML BAG IV SCH ×3 (01:46→17:50)
[2018-12-20] MEDS: KCL 20 MEQ/100 mL IVPB 20 MEQ/100 ML BAG IV SCH (01:47)
[2018-12-20] MEDS: SIMETHICONE 125 MG TAB PO SCH ×4 (05:31→22:00)
[2018-12-20] MEDS: LEVOTHYROXINE SOD 0.1 MG TAB PO SCH (05:32)
[2018-12-20 06:38] LABS: Absolute Lymphocytes (CBC) 1.8 K/uL (0.7-4.9); Absolute Monocytes 1.6 K/uL (0.1-1.3); Absolute Neutrophil 7.5 K/uL (1.8-8.0); Basophils % 0.6 % (0-1.3); Hematocrit 33.4 % (36.0-45.0); MPV 8.1 fL (7.6-11.3); Monocytes % 14.4 % (3.3-12.3); RBC Red Blood Cell Count 3.66 M/uL (3.86-4.86)
[2018-12-20 07:06] LABS: ALT/SGPT 16 U/L (12-78); AST/SGOT 23 U/L (15-37); Albumin 2.3 g/dL (3.4-5.0); Alkaline Phosphatase 51 U/L (45-117); BUN Blood Urea Nitrogen 4 mg/dL (7-18); Bicarbonate 28 mmol/L (21-32); Bilirubin Total 0.3 mg/dL (0.2-1.0); Glucose Level 94 mg/dL (74-106); Magnesium 1.6 mg/dL (1.8-2.4); Potassium 3.5 mmol/L (3.5-5.1); Protein, Total 5.5 g/dL (6.4-8.2); Sodium Level 141 mmol/L (136-145)
[2018-12-20 08:44] LABS: Anisocytosis 1+; Blood Morphology Comment NOTED (NOT SEEN); Platelet Estimate ADEQ
[2018-12-20] MEDS: ESLICARBAZEPINE ACETATE PO SCH (09:00)
[2018-12-20] MEDS: FERROUS SULFATE 325 MG TAB PO SCH (09:47)
[2018-12-20] MEDS: LOSARTAN POTASSIUM 50 MG TABLET PO SCH (09:47)
[2018-12-20] MEDS: MEMANTINE HCL 10 MG TABLET PO SCH ×2 (09:47→21:41)
[2018-12-20] MEDS: levETIRAcetam 500 MG TAB PO SCH ×2 (09:47→21:41)
[2018-12-20] MEDS: PANTOPRAZOLE 40 MG INJ IVP SCH (09:48)
[2018-12-20] MEDS: CIPROFLOXACIN 400mg IV 400 MG/200 ML BAG IV SCH ×2 (09:49→21:42)
[2018-12-20] MEDS ORDERED: POTASSIUM CL SA 10 MEQ TAB PO ONE (11:13)
[2018-12-20] MEDS ORDERED: MAGNESIUM SULFATE 1 gm IVPB 1 GM/100 ML BAG IV ONE (11:13)
[2018-12-20] MEDS: POTASS/SODIUM PHOSPHATE 1 PKT POWD.PACK PO SCH ×3 (12:21→17:50)
--- NOTE | 2018-12-20 12:42 | PN ---
ADDENDUM: For progress not dictated on 12/18/18 the Date of Progress Note should state . /TERA Voice ID: [id number] Report ID: [id number] MTDD
[2018-12-20] MEDS ORDERED: NEOSTIGMINE 1 MG/ML -10 ML VIAL IV ONE (12:44)
--- NOTE | 2018-12-20 13:27 | P.PN ---
Subjective Date of Service: 12/20/18 Chief Complaint: Abdominal distension, Subjective: New changes (Tolerating FLs but abdomen slightly more distended today. KUB revealed less colon distention yesterday. She had 2 bowel movements yesterday, none yet today.) Review of Systems General: Weakness, Malaise Physical Examination - Vital Signs Temperature: 98.4 F Blood Pressure: 152/84 Pulse: 82 Respirations: 13 Pulse Ox (%): 95 - Physical Exam General: Alert, In no apparent distress, Oriented x2, Cooperative HEENT: Atraumatic, Normocephalic, PERRLA, Mucous membr. moist/pink Neck: Supple Respiratory: Normal air movement Cardiovascular: Normal pulses Gastrointestinal: No tenderness, No rebound, No guarding, Distended (mild to moderate with obesity) Assessment And Plan - Current Problems (Diagnosis) (1) Abnormal CT of the abdomen Current Visit: Yes Status: Acute (2) Abdominal distension (gaseous) Current Visit: Yes Status: Acute Comment: Improved, s/p colonoscopy (no mass , anatomical obstruction, though with diverticulosis) and Neostigmine with good response for 2 days. Now with slight increase in distention today. 2 stools yesterday, none today. (3) Dementia Current Visit: Yes Status: Chronic Qualifiers: Dementia type: Alzheimer's disease Alzheimer's disease onset: unspecified onset Dementia behavioral disturbance: without behavioral disturbance Qualified Code(s): G30.9 - Alzheimer's disease, unspecified; F02.80 - Dementia in other diseases classified elsewhere without behavioral disturbance - Plan REC: 1) repeat Neostigmine 2 mg IV over 5 minutes now (on telemetry with Atropine at bedside) 2) advance diet from FLs slowly to GI soft 3) monitor labs and replete immediately 4) continue IV antibiotics for colitis with ulcers noted on colonoscopy ( possible barotrauma from ileus / Mable's)
--- NOTE | 2018-12-20 18:32 | PN ---
Date of Progress Note: 12/20/2018 Subjective: The patient is seen and examined, chart reviewed and case discussed with RN and Dr. Ravi sagastume. The patient otherwise states she feels okay, has been passing gas. Medications: List reviewed. Physical Examination: Vital Signs: Temperature 99.2, heart rate 78, blood pressure 151/80, respirations 16, and O2 of 94% on room air. General: Awake, alert, oriented x3, elderly female. CV: S1 and S2. Peripheral pulses present. Respiratory: Moving air well bilaterally with no wheezing. Gastrointestinal: Abdomen is mildly distended. Bowel sounds are positive. No rebound or guarding. No tenderness to palpation. Extremities: No clubbing, cyanosis, or edema. Neurologic: Nonfocal. Laboratory Data: Sodium 141, potassium 3.5, chloride 106, CO2 of 28, BUN 4, creatinine 0.52, glucose 94, calcium 7.8, phosphorus 2, and magnesium 1.6. WBC 11.2, H and H of 11.2 and 33.4, platelets 370 , and neutrophils 67%. Blood cultures no growth, final. Assessment And Plan: An 83-year-old female with, 1.Abdominal pain secondary to ileus, possible J[place]ura syndrome, improved, the patient is passing gas , tolerating diet. Appreciate GI input. 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 The patient is passing gas. Dr. Jay recommends surgery, however, the patient herself states that she would rather not have surgery, we will need to discuss with family regarding her surgical options. 3.Alzheimer's dementia without behavioral disturbance, early onset, stable. 4.Lumbar vertebral fracture, L1, closed, with routine healing. 5.Multiple falls secondary to dementia. Continue PT and OT. Fall precautions. 6.Elevated blood pressure without diagnosis of hypertension. Continue p.r.n. medication. 7.Deep venous thrombosis prophylaxis with SCDs. PLAN: Need to discuss with family possibility of surgery versus palliative care. The patient is DNR . I spoke with [facility] medical attendant after appeal as the patient got denied for a senior care f acility, they declined the appeal. The patient apparently has been nonambulatory at her baseline. SA/MODL Voice ID: [id number] Report ID: [id number]
[2018-12-20] MEDS: ATORVASTATIN 10 MG TAB PO SCH (21:41)
[2018-12-20] MEDS: MELATONIN 3 MG TABLET PO SCH (21:43)
[2018-12-20] MEDS: CITALOPRAM 10 MG TABLET PO SCH (21:44)
[2018-12-21] MEDS: METRONIDAZOLE 500mg IVPB 500 MG/100 ML BAG IV SCH ×2 (01:41→09:47)
[2018-12-21] MEDS: SIMETHICONE 125 MG TAB PO SCH ×2 (04:00→09:46)
[2018-12-21] MEDS: NA CHLORIDE 0.9% 1,000 ML IV SCH (04:21)
[2018-12-21 06:08] LABS: Absolute Lymphocytes (CBC) 1.6 K/uL (0.7-4.9); Absolute Monocytes 1.6 K/uL (0.1-1.3); Absolute Neutrophil 10.3 K/uL (1.8-8.0); Basophils % 1.1 % (0-1.3); Eosinophils % 0.9 % (0-4.4); Hematocrit 34.8 % (36.0-45.0); Lymphocytes % 11.4 % (15.3-44.8); Monocytes % 11.4 % (3.3-12.3); RBC Red Blood Cell Count 3.82 M/uL (3.86-4.86)
[2018-12-21 06:22] LABS: ALT/SGPT 26 U/L (12-78); AST/SGOT 44 U/L (15-37); Albumin 2.3 g/dL (3.4-5.0); Alkaline Phosphatase 48 U/L (45-117); BUN Blood Urea Nitrogen 3 mg/dL (7-18); Bicarbonate 28 mmol/L (21-32); Bilirubin Total 0.3 mg/dL (0.2-1.0); Glucose Level 103 mg/dL (74-106); Magnesium 1.9 mg/dL (1.8-2.4); Phosphorus 2.4 mg/dL (2.5-4.9); Potassium 3.6 mmol/L (3.5-5.1); Protein, Total 5.3 g/dL (6.4-8.2); Sodium Level 140 mmol/L (136-145)
[2018-12-21] MEDS: LEVOTHYROXINE SOD 0.1 MG TAB PO SCH (06:30)
[2018-12-21 07:39] LABS: Urine White Blood Cell Casts OK
[2018-12-21 07:40] LABS: Anisocytosis 1+; Blood Morphology Comment NOTED (NOT SEEN); Platelet Estimate ADEQ
[2018-12-21] MEDS: ESLICARBAZEPINE ACETATE PO SCH (09:00)
[2018-12-21] MEDS ORDERED: POTASSIUM CL SA 10 MEQ TAB PO ONE (09:14)
[2018-12-21] MEDS: PANTOPRAZOLE 40 MG INJ IVP SCH (09:45)
[2018-12-21] MEDS: levETIRAcetam 500 MG TAB PO SCH (09:46)
[2018-12-21] MEDS: POTASS/SODIUM PHOSPHATE 1 PKT POWD.PACK PO SCH ×3 (09:46→13:31)
[2018-12-21] MEDS: LOSARTAN POTASSIUM 50 MG TABLET PO SCH (09:46)
[2018-12-21] MEDS: FERROUS SULFATE 325 MG TAB PO SCH (09:46)
[2018-12-21] MEDS: MEMANTINE HCL 10 MG TABLET PO SCH (09:46)
[2018-12-21] MEDS: CIPROFLOXACIN 400mg IV 400 MG/200 ML BAG IV SCH (09:47)
--- NOTE | 2018-12-21 11:23 | P.PN ---
Subjective Date of Service: 12/21/18 Chief Complaint: Abdominal distension, Mable's / ileus Subjective: Improving (2nd dose of Neostigmine worked well yesterday with multiple stools. She is tolerating po diet and is to be discharged today.) Review of Systems 10-point ROS is otherwise unremarkable General: Weakness (Improved) Physical Examination - Vital Signs Temperature: 97.2 F Blood Pressure: 128/58 Pulse: 79 Respirations: 18 Pulse Ox (%): 94 - Physical Exam General: Alert, Oriented x2, Cooperative HEENT: Atraumatic, Normocephalic, PERRLA, EOMI Neck: Supple Respiratory: Normal air movement Cardiovascular: Normal pulses Gastrointestinal: Soft and benign, No tenderness, No rebound, No guarding, Distended (mild and obese ) Assessment And Plan - Current Problems (Diagnosis) (1) Abnormal CT of the abdomen Current Visit: Yes Status: Acute (2) Abdominal distension (gaseous) Current Visit: Yes Status: Acute Comment: Improved, s/p colonoscopy (no mass , anatomical obstruction, though with diverticulosis) and Neostigmine with good response for 2 days. Good response to repeat Neostigmine yesterday with multiple stools. (3) Dementia Current Visit: Yes Status: Chronic Qualifiers: Dementia type: Alzheimer's disease Alzheimer's disease onset: unspecified onset Dementia behavioral disturbance: without behavioral disturbance Qualified Code(s): G30.9 - Alzheimer's disease, unspecified; F02.80 - Dementia in other diseases classified elsewhere without behavioral disturbance - Plan REC: 1) monitor labs and replete immediately 2) GI clinic f/u
--- NOTE | 2018-12-22 02:53 | DS ---
Date of Discharge: 12/21/2018 Consultants: Dr. Gant with GI, Dr. Jay with General Surgery. Procedures: Colonoscopy on 12/17/2018, shows diverticulum, large ulcers x2, ascending colon, ulcer i n sigmoid. The patient also received neostigmine x2. Monitored with telemetry afterwards. Admitting Diagnoses: 1.Abdominal distention. 2.Colon distention. 3.Dementia, Alzheimer's disease without behavioral disturbance. 4.Vertebral fracture, lumbar, L1 with routine healing. 5.Multiple falls. 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 2.Abdominal pain, improved. 3.Alzheimer's dementia without behavioral disturbance, early onset, stable. 4.Lumbar vertebral fracture, L1, closed with protein healing. 5.Multiple falls secondary to dementia. 6.Elevated blood pressure without diagnosis of hypertension. Hospital Course: The patient is an 83-year-old female with dementia, comes in with abdominal distent ion. She also has history of scleroderma. She is a usp patient in [facility]. She has b een having multiple falls, had a recent compression fracture. The patient's workup found elevated wh ite blood cell count 14.7. CT scan showed diffuse distention of the colon without clear obstructing mass, luminal narrowing involving the sigmoid colon. The patient was admitted to the hospital, start ed on IV fluids, pain medications. The patient was seen by Dr. Gant with GI for her for colonoscop y. The patient had colonoscopy on the with findings as noted. The patient was thought to have Mable syndrome. Dr. Jay with General Surgery was consulted. He recommended surgery with part ial colectomy, however, family declined. It should be noted that the patient did refuse colonoscopy twice and then was agreeable to the procedure. The patient was then started on clear liquid diet. S he was also given neostigmine x2 at 2 separate times of more than 24 hours apart, which helped and im proved her symptoms. She was able to have bowel movements and her pain subsided. She understands th at her symptoms may worsen without surgery. Family and the patient herself did not opt for any surge ry. They did not feel that she would survive and they did not want her to go through the stress of s urgery. Therefore, they chose palliative care. The patient was denied to [facility] from insuranc e. However, family will be paying privately for semiprivate bed. The patient was then cleared for d ischarge from strategic sourcing consultant's standpoint. She was able to tolerate her diet. Her pain had resolved. S he was passing gas and having bowel movement. She was then transferred to nursing facility with [facility] in a fair condition. Medications: As per medication reconciliation list. She will finish off course of antibiotics and w ill be on PPI b.i.d.. Followup: Follow up with PCP as needed. Follow up with Dr. Gant i couple of weeks. Diet: GI soft. Activity: Fall precautions. Physical Examination: General: Awake, alert, oriented x3. Elderly female, not in any acute distress. CV: S1, S2. Respiratory: Moving air well bilaterally. Abdomen: Mildly distended. No tenderness. Bowel sounds positive. Extremities: No clubbing, cyanosis, edema. Neuro: The patient has generalized weakness. No focal neurological deficit. Total time spent discharging the patient was 45 minutes. STEFANO Voice ID: [id number] Report ID: [id number]
== END 2018-12-21 17:45 | disposition hospice, inpatient (51) | DRG 392 ==
LOC: ER 14:50 → ERHOLD 18:46 → 4TH 21:13
PROVIDERS: ADMIT Family Medicine; ATTEND Family Medicine
PROC: 0DJD8ZZ Inspection of Lower Intestinal Tract, Via Natural or Artificial Opening Endoscopic (ICD-10-PCS; principal; 2018-12-17 11:30)
DX: K59.8 Other specified functional intestinal disorders (principal); K63.3 Ulcer of intestine; F03.90 Unspecified dementia, unspecified severity, without behavioral disturbance, psychotic disturbance, mood disturbance, and anxiety; K63.89 Other specified diseases of intestine; G30.9 Alzheimer's disease, unspecified; F02.80 Dementia in other diseases classified elsewhere, unspecified severity, without behavioral disturbance, psychotic disturbance, mood disturbance, and anxiety; S32.019D Unspecified fracture of first lumbar vertebra, subsequent encounter for fracture with routine healing; K57.30 Diverticulosis of large intestine without perforation or abscess without bleeding; K64.8 Other hemorrhoids; R03.0 Elevated blood-pressure reading, without diagnosis of hypertension; Z66 Do not resuscitate
CPT/HCPCS: 36415; 71045; 72100; 74018; 74177; 74283; 80048; 80053; 80076; 81003; 83036; 83605; 83690; 83735; 84100; 84145; 85025; 86038; 87040; 94760; 96365; 96367; 96374; 96375; 97110; 97112; 97163; 97166; 97530; 99284; 99285; C9113; J0360; J0744; J1953; J2001; J2405; J2543; J2704; J2710; J2765; J3010; J3475; J7030; Q9967